=== PATIENT | male | born 1940 | race Caucasian/White ===

== ENCOUNTER 2017-05-09 14:45 | Emergency (ER) | payer MEDICARE ==
[2017-05-09 15:07] VITALS: RESP 18
[2017-05-09] MEDS ORDERED: FAMOTIDINE 20 MG TAB PO STA (15:17)
[2017-05-09] MEDS ORDERED: methylPREDNISolone SOD SUCCI 125 MG/2 ML VIAL IM ONE (15:17)
[2017-05-09] MEDS ORDERED: diphenhydrAMINE 50 MG CAP PO STA (15:17)
--- NOTE | 2017-05-09 15:31 | ED ---
Allergic Reaction HPI - General Chief complaint: Allergic Reaction Stated complaint: post CT with contrast-hives Time Seen by Provider: 05/09/17 15:11 Source: patient Mode of arrival: ambulatory Limitations: no limitations - History of Present Illness Initial Comments: Patient is a 76-year-old male states of cardiac past medical history who presents to the emergency department for evaluation of possible ALLERGIC reaction to IV contrast. The patient underwent a CTA earlier in the day, he tolerated the imaging study well and upon walking to his car noticed that he had hives on his chest and one on his right face. Patient does report that approximately 40 years ago he had an ALLERGIC reaction to IV contrast, however he noted that this was a different formulation of IV contrast and that he did not believe he would have a reaction to this contrast today. Patient denies any swelling of his tongue, tightness of his throat or chest. He denies any difficulty breathing, chest pain nausea or vomiting. Patient does note that over the weekend he was started on a new medication for his prostate and that he subsequently developed swelling of the lips, he then Benadryl on Saturday with mild improvement in the swelling. He has been discontinued use of his new medication. Patient states "I think I'm just full of histamine." - Related Data Home Medications Medication Instructions Recorded Confirmed ALPRAZolam [Xanax] 0.5 mg PO TID PRN 02/06/16 05/09/17 Calcium Carbonate/Vitamin D3 1 tab PO 02/06/16 05/09/17 [Calcium 600-Vit D3 400 Tablet] Doxazosin [Cardura] 4 mg PO 02/06/16 05/09/17 Ergocalciferol [Vitamin D2 50,000 unit PO TU 02/06/16 05/09/17 (DRISDOL)] Ezetimibe [Zetia] 10 mg PO 02/06/16 05/09/17 Pom[place]-3 Fatty Acids [Pomaria-3] 2,000 mg PO 02/06/16 05/09/17 Pravastatin Sodium [Pravachol] 20 mg PO HS 02/06/16 05/09/17 Quinapril HCl 40 mg PO 02/06/16 05/09/17 Ranitidine HCl 300 mg PO 02/06/16 05/09/17 Ubidecarenone [Co Q-10] 300 mg PO HS 02/06/16 05/09/17 cloNIDine HCL [Catapres] 0.1 mg PO DAILY PRN 02/06/16 05/09/17 Aspirin 81 mg PO HS 03/22/16 05/09/17 Diltiazem HCl [Diltiazem 24Hr ER] 240 mg PO HS 03/22/16 05/09/17 Previous Rx's Medication Instructions Recorded Apixaban [Eliquis] 5 mg PO BID #60 tab 02/24/16 Metoprolol Tartrate [Lopressor] 25 mg PO BID #60 tab 02/24/16 Allergies Allergy/AdvReac Type Severity Reaction Status Date / Time adhesive Allergy Itching Verified 05/09/17 15:30 levofloxacin [From Levaquin] Allergy Rash/Hives Verified 05/09/17 15:30 perfume Allergy chokes/SOB Verified 05/09/17 15:30 promethazine HCl Allergy Stroke Verified 05/09/17 15:30 [From Phenergan] like symptoms tamsulosin HCl [From Flomax] Allergy Cough Verified 05/09/17 15:30 aftershave Allergy chokes,SOB Uncoded 03/22/16 11:43 Review of Systems ROS Statement: Those systems with pertinent positive or pertinent negative responses have been documented in the HPI. ROS Other: All systems not noted in ROS Statement are negative. Constitutional: Denies: fever, chills Eyes: Denies: vision change ENT: Denies: throat pain Respiratory: Denies: cough, dyspnea, wheezes, stridor Cardiovascular: Denies: chest pain, palpitations Endocrine: Denies: fatigue Gastrointestinal: Denies: abdominal pain, nausea, vomiting Skin: Reports: rash (hives on chest) Neurological: Denies: headache, weakness Hematological/Lymphatic: Denies: easy bleeding, easy bruising Past Medical History Past Medical History: Atrial Fibrillation, Coronary Artery Disease (CAD), Chest Pain / Angina, GERD/Reflux, Hyperlipidemia, Hypertension, Osteoarthritis (OA), Rheumatoid Arthritis (RA), Sleep Apnea/CPAP/BIPAP Additional Past Medical History / Comment(s): irregular heartbeat, hiatal hernia , incisional hernia, hx diverticulitis, small aortic aneurysm on CT(4 cm), urinary frequency, hx subdural hematoma after concussion, pt states CABG chest incision still sore History of Any Multi-Drug Resistant Organisms: None Reported Past Surgical History: Bowel Resection, Cholecystectomy, Coronary Bypass/CABG, Heart Catheterization, Hernia Repair, Joint Replacement, Orthopedic Surgery, Tonsillectomy Additional Past Surgical History / Comment(s): 10/19/15 3 vessel CABG at [facility] in [place], bilateral total knee replacements. varicose veins removed from vimal great toes, mult hernia surgery, vimal knee arthroscopy Past Anesthesia/Blood Transfusion Reactions: Previous Problems w/ Anesthesia, Motion Sickness Additional Past Anesthesia/Blood Transfusion Reaction / Comment(s): Pt has received blood in past without reaction. failed atempt x 4 for spinal anesthesia due to spinal stenosis per pt Past Psychological History: Anxiety Smoking Status: Never smoker Past Alcohol Use History: Occasional Past Drug Use History: None Reported - Past Family History Father Family Medical History: Coronary Artery Disease (CAD) Additional Family Medical History / Comment(s): Father at age 75 yrs from complication associated with [place]-Ferny catheter. Mother Family Medical History: No Reported History Additional Family Medical History / Comment(s): Mother at age 93 yrs. She had cataracts. General Exam Limitations: no limitations General appearance: alert, in no apparent distress Head exam: Present: atraumatic, normocephalic, normal inspection Eye exam: Present: normal appearance, PERRL, EOMI. Absent: scleral icterus, conjunctival injection, periorbital swelling ENT exam: Present: normal exam, mucous membranes moist, other (mild swelling of lip, appear dry and cracked) Neck exam: Present: normal inspection. Absent: tenderness, meningismus, lymphadenopathy Respiratory exam: Present: normal lung sounds bilaterally. Absent: respiratory distress, wheezes, rales, rhonchi, stridor Cardiovascular Exam: Present: regular rate, normal rhythm, normal heart sounds. Absent: systolic murmur, diastolic murmur, rubs, gallop, clicks GI/Abdominal exam: Present: soft, normal bowel sounds. Absent: distended, tenderness, guarding, rebound, rigid Extremities exam: Present: normal inspection Neurological exam: Present: alert, oriented X3, CN II-XII intact Psychiatric exam: Present: normal affect, normal mood Skin exam: Present: warm, dry, intact, rash (small hives on left chest wall) Course Vital Signs 05/09/17 05/09/17 15:02 16:40 Temperature 97.4 F L 97.5 F L Pulse Rate 62 67 Respiratory 18 18 Rate Blood Pressure 143/66 142/68 O2 Sat by Pulse 96 96 Oximetry - Reevaluation(s) Reevaluation #1: Patient was reevaluated, hives on chest have resolved. Patient is sitting comfortably in chair. No tightness in his chest, no chest pain, no nausea. The patient tolerated the IM injection and by mouth medications. 05/09/17 16:28 Medical Decision Making - Medical Decision Making She was seen and evaluated, vital signs were reviewed Patient provided the history Physical exam with small hives on left chest wall No airway or GI involvement, no hemodynamic instability Patient requesting PO or IM medications as his IV was just removed after the CTA and he is on eliquis which causes him to bruise Medications ordered Medications were given, patient tolerated them well Patient was observed for 1 hour after medications, hives improved, patient did not develop any hemodynamic instability, airway or GI involvement All questions pertaining to care were answered to the best of my ability and the patient was discharged home in good condition. Disposition Clinical Impression: Allergic reaction Disposition: HOME SELF-CARE Condition: Good Instructions: Anaphylaxis (ED) Referrals: Bruce Odonnell MD [Primary Care Provider] - 1-2 days Time of Disposition: 16:29
[2017-05-09 16:41] VITALS: BP 142/68; PULSE 67; TEMP 97.5
== END 2017-05-09 16:41 | disposition home or self-care (01) ==
LOC: EC 14:45
DX: T78.40XA Allergy, unspecified, initial encounter (principal); L50.0 Allergic urticaria; I48.91 Unspecified atrial fibrillation; I25.10 Atherosclerotic heart disease of native coronary artery without angina pectoris; K21.9 Gastro-esophageal reflux disease without esophagitis; I10 Essential (primary) hypertension; E78.5 Hyperlipidemia, unspecified; G47.30 Sleep apnea, unspecified; Z99.89 Dependence on other enabling machines and devices; Z95.5 Presence of coronary angioplasty implant and graft; Z95.1 Presence of aortocoronary bypass graft; Z79.82 Long term (current) use of aspirin; Z79.899 Other long term (current) drug therapy; Z88.1 Allergy status to other antibiotic agents; Z88.8 Allergy status to other drugs, medicaments and biological substances; Z91.048 Other nonmedicinal substance allergy status; Z91.09 Other allergy status, other than to drugs and biological substances
CPT/HCPCS: 99283; 96372; J2930

== ENCOUNTER → 2017-05-09 | Outpatient (CLI) | payer MEDICARE ==
[2017-05-09 14:08] LABS: Blood Urea Nitrogen 20 mg/dL (9-20); Non-African American GFR(MDRD) >60 (>60 ml/min/1.73 sqM)
--- NOTE | 2017-05-09 15:33 | CT ---
EXAMINATION TYPE: CT angio chest DATE OF EXAM: 05/09/2017 COMPARISON: CTA chest February 22, 2016 HISTORY: Thoracic aneurysm without mention of rupture. Atherosclerotic heart disease per order. CT DLP: 907 mGycm. Automated Exposure Control for Dose Reduction was Utilized. CONTRAST: CTA scan of the thorax is performed without and with IV Contrast, patient injected with 100 ml mL of Omnipaque 350, aneurysm protocol. Three-D reconstructed Images are created on independent workstation and reviewed. FINDINGS: LUNGS: Some minimal linear scarring or atelectasis in the lingula and left lower lobe near diaphragm is redemonstrated. Slightly elevated left hemidiaphragm is again seen. No suspicious new nodule or m ass is present. There is no pleural effusion or pneumothorax seen. The tracheobronchial tree is de la rosa nt. MEDIASTINUM: Main pulmonary artery is less prominent on current study measuring 3.0 cm in diameter on axial image 27. Adjacent ascending aorta measures 4.0 x 3.9 cm on axial image 27 felt stable tiny f or technical differences versus prior study. There are no greater than 1 cm hilar or mediastinal lymp h nodes. No significant pericardial effusion is seen. There is stable mild cardiomegaly. There is p rominent jena coronary artery calcification but post CABG changes with mediastinal clips and sterna l wires is redemonstrated. OTHER: There is stable small to moderate size hiatal hernia. There is stable moderate to severe multi level spurring in the spine. IMPRESSION: 1. Stable 4.0 cm aneurysm of the ascending aorta.
== END | disposition home or self-care (01) ==
LOC: RADCTMAIN 12:46
PROVIDERS: ATTEND Internal Medicine Interventional Cardiology
DX: I71.2 Thoracic aortic aneurysm, without rupture (principal); I25.10 Atherosclerotic heart disease of native coronary artery without angina pectoris
CPT/HCPCS: 82565; 84520; 71275; 36415; Q9967

== ENCOUNTER 2017-05-20 19:35 | Emergency (ER) | payer MEDICARE ==
[2017-05-20] MEDS ORDERED: methylPREDNISolone SOD SUCCI 125 MG/2 ML VIAL IM ONE (20:07)
[2017-05-20] MEDS ORDERED: FAMOTIDINE 20 MG TAB PO STA (20:07)
--- NOTE | 2017-05-20 20:15 | ED ---
General Adult HPI - General Chief complaint: Skin/Abscess/Foreign Body Stated complaint: Allergic Reaction Time Seen by Provider: 05/20/17 20:06 Source: patient Mode of arrival: ambulatory Limitations: no limitations - History of Present Illness Initial comments: 76-year-old male patient presents to emergency department today for evaluation of hives to his face and scalp. He states that this started around 12:00 this afternoon. He states that he is having scratchy throat, and tongue swelling with this. He denies any new exposures. States that he did use a new hand of shaving cream today however this is the same brand he has been using for years. He denies any new foods, medications, soaps, or clothing. He denies any difficulty breathing or difficulty swallowing. Patient states he did take a Benadryl about 1 hour ago. Patient denies any recent fever, chills, chest pain , abdominal pain, nausea, vomiting, diarrhea, constipation, back pain, numbness , tingling, headache, visual changes, hematuria, dysuria, urinary frequency, urinary urgency, or any other complaints. - Related Data Home Medications Medication Instructions Recorded Confirmed ALPRAZolam [Xanax] 0.5 mg PO TID PRN 02/06/16 05/20/17 Calcium Carbonate/Vitamin D3 1 tab PO HS 02/06/16 05/20/17 [Calcium 600-Vit D3 400 Tablet] Doxazosin [Cardura] 4 mg PO HS 02/06/16 05/20/17 Ergocalciferol [Vitamin D2 50,000 unit PO TU 02/06/16 05/20/17 (DRISDOL)] Ezetimibe [Zetia] 10 mg PO 02/06/16 05/20/17 [place]-3 Fatty Acids [[place]-3] 2,000 mg PO HS 02/06/16 05/20/17 Pravastatin Sodium [Pravachol] 20 mg PO HS 02/06/16 05/20/17 Quinapril HCl 40 mg PO 02/06/16 05/20/17 Ranitidine HCl 300 mg PO HS 02/06/16 05/20/17 Ubidecarenone [Co Q-10] 300 mg PO HS 02/06/16 05/20/17 cloNIDine HCL [Catapres] 0.1 mg PO DAILY PRN 02/06/16 05/20/17 Aspirin 81 mg PO HS 03/22/16 05/20/17 Diltiazem HCl [Diltiazem 24Hr ER] 240 mg PO HS 03/22/16 05/20/17 Previous Rx's Medication Instructions Recorded Apixaban [Eliquis] 5 mg PO BID #60 tab 02/24/16 Metoprolol Tartrate [Lopressor] 25 mg PO BID #60 tab 02/24/16 predniSONE 50 mg PO DAILY #3 tab 05/20/17 Allergies Allergy/AdvReac Type Severity Reaction Status Date / Time adhesive Allergy Itching Verified 05/20/17 19:56 levofloxacin [From Levaquin] Allergy Rash/Hives Verified 05/20/17 19:56 perfume Allergy chokes/SOB Verified 05/20/17 19:56 promethazine HCl Allergy Stroke Verified 05/20/17 19:56 [From Phenergan] like symptoms tamsulosin HCl [From Flomax] Allergy Cough Verified 05/20/17 19:56 aftershave Allergy chokes,SOB Uncoded 05/20/17 19:56 Review of Systems ROS Statement: Those systems with pertinent positive or pertinent negative responses have been documented in the HPI. ROS Other: All systems not noted in ROS Statement are negative. Past Medical History Past Medical History: Atrial Fibrillation, Coronary Artery Disease (CAD), Chest Pain / Angina, GERD/Reflux, Hyperlipidemia, Hypertension, Osteoarthritis (OA), Rheumatoid Arthritis (RA), Sleep Apnea/CPAP/BIPAP Additional Past Medical History / Comment(s): irregular heartbeat, hiatal hernia , incisional hernia, hx diverticulitis, small aortic aneurysm on CT(4 cm), urinary frequency, hx subdural hematoma after concussion, pt states CABG chest incision still sore History of Any Multi-Drug Resistant Organisms: None Reported Past Surgical History: Bowel Resection, Cholecystectomy, Coronary Bypass/CABG, Heart Catheterization, Hernia Repair, Joint Replacement, Orthopedic Surgery, Tonsillectomy Additional Past Surgical History / Comment(s): 10/19/15 3 vessel CABG at [facility] in [place], bilateral total knee replacements. varicose veins removed from vimal great toes, mult hernia surgery, vimal knee arthroscopy Past Anesthesia/Blood Transfusion Reactions: Previous Problems w/ Anesthesia, Motion Sickness Additional Past Anesthesia/Blood Transfusion Reaction / Comment(s): Pt has received blood in past without reaction. failed atempt x 4 for spinal anesthesia due to spinal stenosis per pt Past Psychological History: Anxiety Smoking Status: Never smoker Past Alcohol Use History: Occasional Past Drug Use History: None Reported - Past Family History Father Family Medical History: Coronary Artery Disease (CAD) Additional Family Medical History / Comment(s): Father at age 75 yrs from complication associated with [place]-Ferny catheter. Mother Family Medical History: No Reported History Additional Family Medical History / Comment(s): Mother at age 93 yrs. She had cataracts. General Exam Limitations: no limitations General appearance: alert, in no apparent distress Eye exam: Present: normal appearance, PERRL, EOMI. Absent: scleral icterus, conjunctival injection, periorbital swelling ENT exam: Present: normal exam, normal oropharynx, mucous membranes moist, TM's normal bilaterally, other (Minimal tongue swelling and dryness.) Neck exam: Present: normal inspection. Absent: tenderness, meningismus, lymphadenopathy Respiratory exam: Present: normal lung sounds bilaterally. Absent: respiratory distress, wheezes, rales, rhonchi, stridor Cardiovascular Exam: Present: regular rate, normal rhythm, normal heart sounds. Absent: systolic murmur, diastolic murmur, rubs, gallop, clicks Neurological exam: Present: alert, oriented X3, CN II-XII intact Psychiatric exam: Present: normal affect, normal mood Skin exam: Present: warm, dry, intact, normal color, rash (Sparse red, raised, itchy lesions noted to face and scalp. Lesions appear similar to hives. Surrounding erythema.) Course Vital Signs 05/20/17 05/20/17 19:54 21:03 Temperature 98 F 97.6 F Pulse Rate 75 87 Respiratory 20 18 Rate Blood Pressure 136/63 154/78 O2 Sat by Pulse 98 97 Oximetry Medical Decision Making - Medical Decision Making 76-year-old male patient presented for evaluation of hives and itching to his face and scalp. Patient was given IM Benadryl Solu-medrol as well as Pepcid by mouth. Upon reevaluation patient states that he feels normal, states he is no longer having any itching or tongue symptoms. Did give patient prescription for a three-day course of prednisone. He is instructed to continue taking Benadryl every 6 hours. He is instructed to Spot test his new shaving cream. He is instructed to return here immediately for any new, worsening, or concerning symptoms. He is instructed to follow-up with his primary care physician for recheck in 1-2 days. He verbalizes understanding and agrees with this plan. Disposition Clinical Impression: Urticaria, Allergic reaction Disposition: HOME SELF-CARE Condition: Good Instructions: Urticaria (ED) Additional Instructions: Take steroid as directed. Take Benadryl every 6 hours as needed. Follow up with your primary care physician for recheck in 1-2 days. Return here immediately for any new, worsening, or concerning symptoms. Prescriptions: predniSONE 50 mg PO DAILY #3 tab Referrals: Bruce Odonnell MD [Primary Care Provider] - 1-2 days Time of Disposition: 20:59
[2017-05-20] MEDS ORDERED: diphenhydrAMINE 50 MG/ML 1 ML VIAL IM STA (20:26)
[2017-05-20 21:04] VITALS: BP 154/78; PULSE 87; RESP 18; TEMP 97.6
== END 2017-05-20 21:07 | disposition home or self-care (01) ==
LOC: EC 19:35
DX: T78.40XA Allergy, unspecified, initial encounter (principal); L50.9 Urticaria, unspecified; E78.5 Hyperlipidemia, unspecified; I10 Essential (primary) hypertension; K21.9 Gastro-esophageal reflux disease without esophagitis; M19.90 Unspecified osteoarthritis, unspecified site; M06.9 Rheumatoid arthritis, unspecified; Z79.82 Long term (current) use of aspirin; Z79.899 Other long term (current) drug therapy; Z88.1 Allergy status to other antibiotic agents; Z88.8 Allergy status to other drugs, medicaments and biological substances; Z91.048 Other nonmedicinal substance allergy status; Z86.79 Personal history of other diseases of the circulatory system
CPT/HCPCS: 99283; 96372 ×2; J1200; J2930

== ENCOUNTER 2019-02-26 10:33 | Day surgery (SDC) | payer MEDICARE ==
[2019-02-24 15:12] VITALS: BMI 36.3
[~2019-02-26 10:33] MED LIST: LACTATED RINGERS 1,000 ML IV SCH; LIDOCAINE 1% 20 ML VIAL (10MG/ML) FOR IV START INTRADERMA PRN
[2019-02-26 11:02] VITALS: TEMP 97.9
[2019-02-26] MEDS ORDERED: PROPOFOL 10 MG/ML 20 ML VIAL IV ONE (12:18)
[2019-02-26 12:47] VITALS: PULSE 61; RESP 16
--- NOTE | 2019-02-26 12:52 | P.PCN ---
Date of Procedure: 02/26/19 Procedure(s) Performed: Procedure: Esophagogastroduodenoscopy and biopsy. Preoperative diagnosis: History of esophagitis and Metzger's esophagus. Postoperative diagnosis: 1. Hiatal hernia and Metzger's esophagus but no obvious esophagitis or strictures. 2. Multiple biopsies obtained from the Metzger's se gment to rule out dysplasia. Preparation and sedation: Was provided by anesthesia. Brief clinical history: The patient is a 78-year-old male who was evaluated in the office earlier this month following his return from [place]. He had and upper endoscopy at [facility] in October of this year and was diagnosed to have esophagitis and Metzger's esophagus. He was changed from H2 blockers to Courtney nix and advised to have repeat endoscopy at home. The patient has been doing well and not having heartburn. No dysphagia or other alarm symptoms. Procedure: With the patient on his left lateral decubitus position and after informed consent and adequate sedation, I passed the Olympus-GIF H190 video upper endoscope through the cricopharyngeus down the esophagus. GE junction was irregular and started around 34 cm from the incisors and the tubular esophagus continued for another 4 or 5 cm. There was a moderately sized hiatal hernia that was then entered, then the endoscope was passed into the stomach which was insufflated with air and inspected in detail including the retroflex view in the cardia. Finally, the endoscope was passed through the pylorus into the duodenum. The stomach, pyloric channel, duodenal bulb, post bulbar area and descending duodenum appeared within normal. The esophagus appeared healed with no evidence of esophagitis as mentioned. I obtained multiple biopsies from the Metzger's segment to rule out dysplasia then the endoscope was withdrawn. The patient tolerated the procedure well. Plan: The patient was reassured. He will continue antireflux diet and measures as well as his protonix. I anticipate he will have a repeat upper endoscopy in 1-3 years depending on the biopsy results. I will keep you updated on his progress.
[2019-02-26 13:05] VITALS: BP 127/78
== END 2019-02-26 13:28 | disposition home or self-care (01) ==
LOC: ORWHC2ENDO 10:33
DX: K22.711 Barrett's esophagus with high grade dysplasia (principal); K44.9 Diaphragmatic hernia without obstruction or gangrene; I48.91 Unspecified atrial fibrillation; Z85.038 Personal history of other malignant neoplasm of large intestine; I25.119 Atherosclerotic heart disease of native coronary artery with unspecified angina pectoris; I10 Essential (primary) hypertension; Z90.49 Acquired absence of other specified parts of digestive tract; K21.9 Gastro-esophageal reflux disease without esophagitis; E07.9 Disorder of thyroid, unspecified; M19.90 Unspecified osteoarthritis, unspecified site; Z95.1 Presence of aortocoronary bypass graft; E78.5 Hyperlipidemia, unspecified; I27.20 Pulmonary hypertension, unspecified; G47.33 Obstructive sleep apnea (adult) (pediatric); Z99.89 Dependence on other enabling machines and devices; Z79.82 Long term (current) use of aspirin; Z79.52 Long term (current) use of systemic steroids; Z79.899 Other long term (current) drug therapy; Z88.1 Allergy status to other antibiotic agents; Z88.8 Allergy status to other drugs, medicaments and biological substances; Z91.09 Other allergy status, other than to drugs and biological substances
CPT/HCPCS: 88305; 43239; J2704

== ENCOUNTER → 2020-04-11 | Outpatient (CLI) | payer MEDICARE ==
--- NOTE | 2020-04-11 12:44 | XR ---
EXAMINATION TYPE: XR femur RT DATE OF EXAM: 04/11/2020 CLINICAL HISTORY: Pain TECHNIQUE: Two views of the right femur are obtained. COMPARISON: None FINDINGS: There is mild arthropathy of the hips. Vascular calcifications are seen. Hypertrophic spur ring of the greater trochanter and acetabulum. Postsurgical change involving the right knee. Atherosc lerotic vascular changes. IMPRESSION: 1. Right hip arthropathy with spurring along the greater trochanter which can be associated with troc hanteric bursitis. 2. No acute fracture. 3. Postsurgical change involving the knee.
--- NOTE | 2020-04-11 12:45 | XR ---
EXAMINATION TYPE: XR Hip Complete RT DATE OF EXAM: 04/11/2020 COMPARISON: NONE HISTORY: Pain TECHNIQUE: 2 views submitted FINDINGS: There is no evidence of erosive change or acute fracture. Sprain involving the greater trochanter see n and there are vascular calcifications. Mild concentric narrowing of the joint space. No erosive ralf nges. IMPRESSION: 1. Mild arthropathy. 2. Correlate for trochanteric bursitis. 3. No acute fracture.
== END | disposition home or self-care (01) ==
LOC: RADXRMAIN 12:10
PROVIDERS: ATTEND Internal Medicine
DX: M16.11 Unilateral primary osteoarthritis, right hip (principal); Z98.890 Other specified postprocedural states
CPT/HCPCS: 73502

== ENCOUNTER → 2020-06-08 | Outpatient (CLI) | payer MEDICARE ==
--- NOTE | 2020-06-08 13:48 | US ---
EXAMINATION TYPE: US kidneys/renal and bladder DATE OF EXAM: 06/08/2020 COMPARISON: NONE CLINICAL HISTORY: R10.9 FLANK PAIN. EXAM MEASUREMENTS: Right Kidney: 12.8 x 4.5 x 4.9 cm Left Kidney: 12.0 x 6.3 x 5.1 cm Right Kidney: lower/medial cyst measures 1.0 x 1.0 x 0.8 cm Left Kidney: upper/medial cyst measures 3.1 x 3.2 x 2.9 cm Bladder: not well distended Bilateral Jets seen: no There is no evidence for hydronephrosis at this point in time. No nephrolithiasis is seen. No solid masses are identified. The urinary bladder is anechoic. IMPRESSION: Simple renal cysts noted.
== END | disposition home or self-care (01) ==
LOC: RADUSWWP 13:19
PROVIDERS: ATTEND Urology
DX: N28.1 Cyst of kidney, acquired (principal)
CPT/HCPCS: 76770

== ENCOUNTER 2022-02-25 17:05 | Inpatient (IN) | payer MEDICARE ==
[2022-02-25 18:20] LABS: Appearance,Urine Clear (Clear); Bilirubin,Urine 1+ (Negative); Blood,Urine Negative (Negative); Color,Urine Yellow; Glucose,Urine (UA) Negative (Negative); Ketones,Urine Trace (Negative); Leukocyte Esterase,Urine Negative (Negative); Nitrite,Urine Negative (Negative); PH, Urine 5.5 (5.0-8.0); Protein,Urine Trace (Negative); Urobilinogen,Urine <2.0 mg/dL (<2.0)
--- NOTE | 2022-02-25 18:40 | XR ---
EXAMINATION TYPE: XR KUB DATE OF EXAM: 02/25/2022 COMPARISON: NONE HISTORY: Abdominal pain TECHNIQUE: 3 views FINDINGS: There are multiple dilated gas-filled loops of small bowel throughout the abdomen. There ar e some fluid levels. No evidence of free air. There is relative lack of large bowel gas. There are so me surgical clips in the left lower quadrant. IMPRESSION: Dilated small bowel suggestive of distal mechanical small bowel obstruction. No free air.
[2022-02-25] MEDS ORDERED: SODIUM CHLORIDE 0.9% 500 ML 500 ML IV ONE (19:22)
[2022-02-25] MEDS ORDERED: ONDANSETRON 4 MG/2 ML VIAL IVP STA (19:22)
[2022-02-25] MEDS ORDERED: HYDROmorphone 0.5 MG/0.5 ML SYRINGE IVP STA (19:22)
[2022-02-25 19:59] LABS: Basophils % (A) 0 %; Eosinophils # (A) 0.1 k/uL (0-0.7); Eosinophils % (A) 1 %; HCT 39.6 % (39.0-53.0); HGB 13.4 gm/dL (13.0-17.5); Lymphocytes # (A) 0.7 k/uL (1.0-4.8); Lymphocytes % (A) 6 %; MCH 31.5 pg (25.0-35.0); MCV 92.8 fL (80.0-100.0); Monocytes # (A) 0.5 k/uL (0-1.0); Monocytes % (A) 4 %; Neutrophils # (A) 10.3 k/uL (1.3-7.7); Neutrophils % (A) 88 %; Platelet Count 226 k/uL (150-450); RBC 4.27 m/uL (4.30-5.90); RDW 13.3 % (11.5-15.5); WBC 11.6 k/uL (3.8-10.6)
[2022-02-25] MEDS: SODIUM CHLORIDE 0.9% 1,000 ML IV SCH (19:59)
[2022-02-25 20:11] LABS: Albumin 4.3 g/dL (3.5-5.0); Calcium 10.5 mg/dL (8.4-10.2); Potassium 4.2 mmol/L (3.5-5.1); Total Bilirubin 2.3 mg/dL (0.2-1.3); Total Protein 7.1 g/dL (6.3-8.2)
[2022-02-25 20:13] LABS: Partial Thromboplastin Time 26.6 sec (22.0-30.0); Prothrombin Time 10.8 sec (9.0-12.0)
--- NOTE | 2022-02-25 20:32 | CT ---
EXAMINATION TYPE: CT abdomen pelvis wo con DATE OF EXAM: 02/25/2022 COMPARISON: None HISTORY: abd pain, N/V since 02/23 CT DLP: 1127.4 mGycm Automated exposure control for dose reduction was used. Images obtained from the diaphragm to the floor the pelvis with no contrast. There is some mild subsegmental atelectasis at the lung bases. No pleural effusion. Heart size is nor mal. No pericardial effusion. Liver and spleen are intact. There is a distended fluid-filled stomach. There is hiatal hernia. No pa ncreatic mass. The bile ducts are not dilated. Gallbladder appears absent. There is no adrenal mass. Kidneys have normal size. No hydronephrosis. There is 4 cm cortical cyst an terior left kidney. No retroperitoneal adenopathy. Ureters are not dilated. Urinary bladder is almost empty. No pelvic mass. No free fluid in the pelvis. No inguinal hernia. There is multiple dilated fluid-filled small bowel loops throughout the abdomen. The terminal ileum i s not dilated. No hernia seen. Transition point not identified. Small bowel dilated up to 4 cm. Lumbar vertebra have normal alignment. No compression fracture. There is degenerative disc space narr owing throughout the lumbar spine. There is multilevel spurring of the endplates. The hip joints are intact. Appendix is small and appears normal. IMPRESSION: Dilated proximal and mid small bowel suggestive of significant ileus or partial mechanical small anuradha l obstruction.
[2022-02-25] MEDS ORDERED: ONDANSETRON 4 MG/2 ML VIAL IVP PRN (20:42)
[2022-02-25] MEDS ORDERED: NALOXONE 0.4 MG/ML 1 ML VIAL IV PRN (20:42)
--- NOTE | 2022-02-25 20:46 | ED ---
General Adult HPI - General Chief complaint: Abdominal Pain Stated complaint: Abd pain Time Seen by Provider: 02/25/22 19:05 Source: patient, RN notes reviewed, old records reviewed Mode of arrival: ambulatory Limitations: no limitations - History of Present Illness Initial comments: 81-year-old male presenting for reevaluation of abdominal pain and distention as well as vomiting. Patient has had symptoms for the past 3 days. He was seen at outside emergency department as well as urgent care over this time. He had workup including CT scanning. He initially had diarrhea however this has subsided and he has had increased abdominal pain, distention and no vomiting. No fevers. He had previous abdominal surgery including cholecystectomy and ant erior abdominal wall hernia repair. - Related Data Home Medications Medication Instructions Recorded Confirmed ALPRAZolam [Xanax] 0.5 mg PO TID PRN 02/06/16 02/26/19 Calcium Carbonate/Vitamin D3 1 tab PO HS 02/06/16 02/24/19 [Calcium 600-Vit D3 400 Tablet] Doxazosin [Cardura] 4 mg PO HS 02/06/16 02/24/19 Ezetimibe [Zetia] 10 mg PO HS 02/06/16 02/24/19 [place]-3 Fatty Acids [[place]-3] 1,000 mg PO HS 02/06/16 02/24/19 Pravastatin Sodium [Pravachol] 20 mg PO HS 02/06/16 02/24/19 Quinapril HCl 40 mg PO HS 02/06/16 02/24/19 Ubidecarenone [Co Q-10] 300 mg PO HS 02/06/16 02/24/19 cloNIDine HCL [Catapres] 0.1 mg PO DAILY PRN 02/06/16 02/26/19 Aspirin 81 mg PO HS 03/22/16 02/24/19 dilTIAZem HCL [dilTIAZem HCL 24Hr 240 mg PO HS 03/22/16 02/24/19 ER ([place])] Pantoprazole [Protonix] 40 mg PO [facility] 02/24/19 02/24/19 predniSONE 50 mg PO DAILY PRN 02/24/19 02/26/19 Previous Rx's Medication Instructions Recorded Apixaban [Eliquis] 5 mg PO BID #60 tab 02/24/16 Metoprolol Tartrate [Lopressor] 25 mg PO BID #60 tab 02/24/16 Allergies Allergy/AdvReac Type Severity Reaction Status Date / Time adhesive Allergy Itching Verified 02/25/22 17:55 Iodine and Iodide Containing Allergy hives Verified 02/25/22 17:55 Produc levofloxacin [From Levaquin] Allergy Rash/Hives Verified 02/25/22 17:55 minocycline Allergy Unknown Verified 02/25/22 17:55 perfume Allergy chokes/SOB Verified 02/25/22 17:55 promethazine HCl Allergy Stroke Verified 02/25/22 17:55 [From Phenergan] like symptoms tamsulosin HCl [From Flomax] Allergy Cough Verified 02/25/22 17:55 aftershave Allergy chokes,SOB Uncoded 02/25/22 17:55 Review of Systems ROS Statement: Those systems with pertinent positive or pertinent negative responses have been documented in the HPI. ROS Other: All systems not noted in ROS Statement are negative. Past Medical History Past Medical History: Atrial Fibrillation, Coronary Artery Disease (CAD), Chest Pain / Angina, GERD/Reflux, Hyperlipidemia, Hypertension, Osteoarthritis (OA), Sleep Apnea/CPAP/BIPAP Additional Past Medical History / Comment(s): irregular heartbeat, hiatal hernia, hx diverticulitis, small aortic aneurysm on CT(4 cm), urinary frequency, hx subdural hematoma after concussion,muscle aches, spinal spurs, degenerative disks, spinal stenosis, eczema, "borderline diabetic"-no diet or medication, "small bladder", "sore left ankle" History of Any Multi-Drug Resistant Organisms: None Reported Past Surgical History: Bowel Resection, Cholecystectomy, Coronary Bypass/CABG, Heart Catheterization, Hernia Repair, Joint Replacement, Orthopedic Surgery, Tonsillectomy Additional Past Surgical History / Comment(s): 10/19/15 3 vessel CABG at [facility] in [place], bilateral total knee replacements. varicose veins removed from great toe rt foot, mult hernia surgeries, vimal knee arthroscopy, barretts esophagus Past Anesthesia/Blood Transfusion Reactions: Previous Problems w/ Anesthesia, Motion Sickness Additional Past Anesthesia/Blood Transfusion Reaction / Comment(s): Pt has received blood in past without reaction. failed atempt x 3 for spinal anesthesia due to spinal stenosis per pt Past Psychological History: Anxiety Smoking Status: Never smoker Past Alcohol Use History: None Reported Past Drug Use History: None Reported - Past Family History Mother Family Medical History: No Reported History Additional Family Medical History / Comment(s): . General Exam Limitations: no limitations General appearance: alert, in no apparent distress Head exam: Present: atraumatic, normocephalic Eye exam: Present: normal appearance, PERRL ENT exam: Present: mucous membranes dry Neck exam: Present: normal inspection. Absent: tenderness, meningismus Respiratory exam: Present: normal lung sounds bilaterally. Absent: respiratory distress, wheezes Cardiovascular Exam: Present: regular rate, normal rhythm, systolic murmur GI/Abdominal exam: Present: distended, tenderness, hypoactive bowel sounds Extremities exam: Present: normal inspection, normal capillary refill. Absent: pedal edema Neurological exam: Present: alert, oriented X3, CN II-XII intact. Absent: motor sensory deficit Psychiatric exam: Present: normal affect, normal mood Skin exam: Present: warm, dry, intact. Absent: cyanosis, diaphoretic Course Vital Signs 02/25/22 17:52 Temperature 97.5 F L Pulse Rate 77 Respiratory 16 Rate Blood Pressure 137/76 O2 Sat by Pulse 97 Oximetry Medical Decision Making - Medical Decision Making 81-year-old male with x-ray evidence of small bowel obstruction. CT is performed and does confirm small bowel stricture. He has a mild leukocytosis, stable hemoglobin, normal lactic. NG tube was placed in the emergency department. Case discussed with Dr. Dr. Odonnell who is patient's primary care physician and Dr. Yarbrough with General surgery. The patient will be kept nothing by mouth, IV fluids, nasogastric tube, pain medication and antiemetics in order. - Lab Data Result diagrams: 02/25/22 19:50 02/25/22 19:50 Lab Results 02/25/22 02/25/22 02/25/22 Range/Units 18:06 19:50 19:50 WBC 11.6 H (3.8-10.6) k/uL RBC 4.27 L (4.30-5.90) m/uL Hgb 13.4 (13.0-17.5) gm/dL Hct 39.6 (39.0-53.0) % MCV 92.8 (80.0-100.0) fL MCH 31.5 (25.0-35.0) pg MCHC 34.0 (31.0-37.0) g/dL RDW 13.3 (11.5-15.5) % Plt Count 226 (150-450) k/uL MPV 7.0 Neutrophils % 88 % Lymphocytes % 6 % Monocytes % 4 % Eosinophils % 1 % Basophils % 0 % Neutrophils # 10.3 H (1.3-7.7) k/uL Lymphocytes # 0.7 L (1.0-4.8) k/uL Monocytes # 0.5 (0-1.0) k/uL Eosinophils # 0.1 (0-0.7) k/uL Basophils # 0.0 (0-0.2) k/uL PT 10.8 (9.0-12.0) sec INR 1.0 (<1.2) APTT 26.6 (22.0-30.0) sec Sodium (137-145) mmol/L Potassium (3.5-5.1) mmol/L Chloride (98-107) mmol/L Carbon Dioxide (22-30) mmol/L Anion Gap mmol/L BUN (9-20) mg/dL Creatinine (0.66-1.25) mg/dL Est GFR (CKD-EPI)AfAm (>60 ml/min/1.73 sqM) Est GFR (CKD-EPI)NonAf (>60 ml/min/1.73 sqM) Glucose (74-99) mg/dL Plasma Lactic Acid Arley (0.7-2.0) mmol/L Calcium (8.4-10.2) mg/dL Total Bilirubin (0.2-1.3) mg/dL AST (17-59) U/L ALT (4-49) U/L Alkaline Phosphatase (38-126) U/L Total Protein (6.3-8.2) g/dL Albumin (3.5-5.0) g/dL Amylase (30-110) U/L Lipase (23-300) U/L Urine Color Yellow Urine Appearance Clear (Clear) Urine pH 5.5 (5.0-8.0) Ur Specific [place] 1.030 (1.001-1.035) Urine Protein Trace H (Negative) Urine Glucose (UA) Negative (Negative) Urine Ketones Trace H (Negative) Urine Blood Negative (Negative) Urine Nitrite Negative (Negative) Urine Bilirubin 1+ H (Negative) Urine Urobilinogen <2.0 (<2.0) mg/dL Ur Leukocyte Esterase Negative (Negative) 02/25/22 02/25/22 Range/Units 19:50 19:50 WBC (3.8-10.6) k/uL RBC (4.30-5.90) m/uL Hgb (13.0-17.5) gm/dL Hct (39.0-53.0) % MCV (80.0-100.0) fL MCH (25.0-35.0) pg MCHC (31.0-37.0) g/dL RDW (11.5-15.5) % Plt Count (150-450) k/uL MPV Neutrophils % % Lymphocytes % % Monocytes % % Eosinophils % % Basophils % % Neutrophils # (1.3-7.7) k/uL Lymphocytes # (1.0-4.8) k/uL Monocytes # (0-1.0) k/uL Eosinophils # (0-0.7) k/uL Basophils # (0-0.2) k/uL PT (9.0-12.0) sec INR (<1.2) APTT (22.0-30.0) sec Sodium 135 L (137-145) mmol/L Potassium 4.2 (3.5-5.1) mmol/L Chloride 101 (98-107) mmol/L Carbon Dioxide 21 L (22-30) mmol/L Anion Gap 13 mmol/L BUN 26 H (9-20) mg/dL Creatinine 1.33 H (0.66-1.25) mg/dL Est GFR (CKD-EPI)AfAm 59 (>60 ml/min/1.73 sqM) Est GFR (CKD-EPI)NonAf 51 (>60 ml/min/1.73 sqM) Glucose 129 H (74-99) mg/dL Plasma Lactic Acid [place] 1.2 (0.7-2.0) mmol/L Calcium 10.5 H (8.4-10.2) mg/dL Total Bilirubin 2.3 H (0.2-1.3) mg/dL AST 25 (17-59) U/L ALT 15 (4-49) U/L Alkaline Phosphatase 56 (38-126) U/L Total Protein 7.1 (6.3-8.2) g/dL Albumin 4.3 (3.5-5.0) g/dL Amylase 74 (30-110) U/L Lipase 74 (23-300) U/L Urine Color Urine Appearance (Clear) Urine pH (5.0-8.0) Ur Specific [place] (1.001-1.035) Urine Protein (Negative) Urine Glucose (UA) (Negative) Urine Ketones (Negative) Urine Blood (Negative) Urine Nitrite (Negative) Urine Bilirubin (Negative) Urine Urobilinogen (<2.0) mg/dL Ur Leukocyte Esterase (Negative) Disposition Clinical Impression: Small bowel obstruction Disposition: ADMITTED IP TO THIS HOSP Condition: Stable Is patient prescribed a controlled substance at d/c from ED?: No Referrals: Bruce Odonnell MD [Primary Care Provider] - 1-2 days Time of Disposition: 20:45
--- NOTE | 2022-02-26 00:17 | XR ---
EXAMINATION TYPE: XR abdomen 1V DATE OF EXAM: 02/26/2022 COMPARISON: NONE HISTORY: Check tube placement TECHNIQUE: Single view FINDINGS: There is nasogastric tube faintly visualized and appears to have the tip over the body of t he stomach. There are dilated multiple loops of small bowel. There is some atelectasis at the lung ba ses. IMPRESSION: NG tube in the stomach. There is probably increasing atelectasis at the lung bases compar ed to exam 5 hours ago.
[2022-02-26] MEDS: HYDROmorphone 0.5 MG/0.5 ML SYRINGE IVP PRN ×3 (01:03→23:43)
--- NOTE | 2022-02-26 09:20 | P.GSCN ---
History of Present Illness Consult date: 02/26/22 History of present illness: 81-year-old male presents to the emergency department with complaints of abdominal pain. He states that he presented to the hospital in [place] a few days ago for similar issue, however was told that it appeared to have gastroenteritis. He states that initially there was some improvement, however his case worsened yesterday and he presented again to the emergency department. He states that he has a past surgical Hx Of cholecystectomy, complex abdominal hernia repair and colectomy secondary to diverticulitis. He denies having any previous history of bowel obstruction. Nasogastric tube was placed in the emergency department and the patient states that there has been some improvement in his abdominal distention. He states that prior to my examination this morning that he did have 1 loose bowel movement. Currently, he has some discomfort with the nasogastric tube that is in place and states he still has some abdominal soreness that has somewhat improved. Review of Systems All systems: negative Past Medical History Past Medical History: Atrial Fibrillation, Coronary Artery Disease (CAD), Chest Pain / Angina, GERD/Reflux, Hyperlipidemia, Hypertension, Osteoarthritis (OA), Sleep Apnea/CPAP/BIPAP Additional Past Medical History / Comment(s): irregular heartbeat, hiatal hernia, hx diverticulitis, small aortic aneurysm on CT(4 cm), urinary frequency, hx subdural hematoma after concussion,muscle aches, spinal spurs, degenerative disks, spinal stenosis, eczema, "borderline diabetic"-no diet or medication, "small bladder", "sore left ankle" History of Any Multi-Drug Resistant Organisms: None Reported Past Surgical History: Bowel Resection, Cholecystectomy, Coronary Bypass/CABG, Heart Catheterization, Hernia Repair, Joint Replacement, Orthopedic Surgery, Tonsillectomy Additional Past Surgical History / Comment(s): 10/19/15 3 vessel CABG at [facility] in [place], bilateral total knee replacements. varicose veins removed from great toe rt foot, mult hernia surgeries, vimal knee arthroscopy, barretts esophagus, cataract surgery Past Anesthesia/Blood Transfusion Reactions: Previous Problems w/ Anesthesia, Motion Sickness Additional Past Anesthesia/Blood Transfusion Reaction / Comm: Pt has received blood in past without reaction. failed atempt x 3 for spinal anesthesia due to spinal stenosis per pt Past Psychological History: Anxiety Additional Psychological History / Comment(s): . Smoking Status: Never smoker Past Alcohol Use History: None Reported Past Drug Use History: None Reported - Past Family History Mother Family Medical History: No Reported History Additional Family Medical History / Comment(s): . Medications and Allergies Home Medications Medication Instructions Recorded Confirmed Type ALPRAZolam [Xanax] 0.5 mg PO TID PRN 02/06/16 02/25/22 History Calcium Carbonate/Vitamin D3 1 tab PO W/BRKFST 02/06/16 02/25/22 History [Calcium 600-Vit D3 400 Tablet] Doxazosin [Cardura] 4 mg PO HS 02/06/16 02/25/22 History Ezetimibe [Zetia] 10 mg PO HS 02/06/16 02/25/22 History [place]-3 Fatty Acids [[place]-3] 1,000 mg PO BID 02/06/16 02/25/22 History cloNIDine HCL [Catapres] 0.1 mg PO QID PRN 02/06/16 02/25/22 History Apixaban [Eliquis] 5 mg PO BID #60 tab 02/24/16 02/25/22 Rx Aspirin 81 mg PO HS 03/22/16 02/25/22 History Pantoprazole [Protonix] 40 mg PO AC-BID 02/24/19 02/25/22 History Candesartan [Atacand] 16 mg PO HS 02/25/22 02/25/22 History Cholecalciferol [Vitamin D3 (25 50 mcg PO DAILY 02/25/22 02/25/22 History Mcg = 1000 Iu)] Cinnamon Bark [Cinnamon] 1,000 mg PO BID 02/25/22 02/25/22 History Cyanocobalamin (Vitamin B-12) 1,000 mcg PO DAILY 02/25/22 02/25/22 History [Vitamin B-12] Desonide [DesOwen 0.05%] 1 applic TOPICAL DIRECTED 02/25/22 02/25/22 History Furosemide [Lasix] 20 mg PO DAILY PRN 02/25/22 02/25/22 History Ipratropium [place] [Ipratropium 1 spray NASAL DAILY PRN 02/25/22 02/25/22 History [place] 0.03%] Levocetirizine Dihydrochloride 5 mg PO DAILY PRN 02/25/22 02/25/22 History [Xyzal] Lovastatin [Mevacor] 20 mg PO HS 02/25/22 02/25/22 History Metoprolol Tartrate [Lopressor] 12.5 mg PO BID 02/25/22 02/25/22 History Montelukast [Singulair] 10 mg PO DAILY PRN 02/25/22 02/25/22 History Multivit-Min/FA/Lycopen/Lutein 1 tab PO DAILY 02/25/22 02/25/22 History [Centrum Silver Men Tablet] Potassium Chloride ER [K-Dur 10] 10 meq PO DAILY PRN 02/25/22 02/25/22 History Silodosin [Rapaflo] 8 mg PO W/SUPPER PRN 02/25/22 02/25/22 History Turmeric Root Extract [Turmeric] 1,000 mg PO BID 02/25/22 02/25/22 History Ubidecarenone [Co Q-10] 300 mg PO BID 02/25/22 02/25/22 History Vits A,C,E/Lutein/Minerals 1 tab PO DAILY 02/25/22 02/25/22 History [Ocuvite with Lutein Tablet] dilTIAZem HCL [dilTIAZem HCL 24Hr 180 mg PO HS 02/25/22 02/25/22 History ER] prednisoLONE ACETATE 1% OPHTH 1 drops RIGHT EYE BID 02/25/22 02/25/22 History [Pred Forte 1%] Allergies Allergy/AdvReac Type Severity Reaction Status Date / Time adhesive Allergy Itching, Verified 02/25/22 20:55 sores, rash alfuzosin Allergy SWELLING Verified 02/25/22 20:55 LIPS Iodine and Iodide Containing Allergy hives Verified 02/25/22 20:55 Produc levofloxacin [From Levaquin] Allergy Rash/Hives Verified 02/25/22 20:55 minocycline Allergy Unknown Verified 02/25/22 20:55 perfume Allergy chokes/SOB Verified 02/25/22 20:55 promethazine HCl Allergy Stroke Verified 02/25/22 20:55 [From Phenergan] like symptoms sucralfate [From Carafate] Allergy ITCHING IN Verified 02/25/22 20:55 MOUTH AND OF LIPS tamsulosin HCl [From Flomax] Allergy Cough Verified 02/25/22 20:55 aftershave Allergy chokes,SOB Uncoded 06/26/22 17:55 Surgical - Exam Osteopathic Statement: *. No significant issues noted on an osteopathic structural exam other than those noted in the History and Physical/Consult. Vital Signs Temp Pulse Resp BP Pulse Ox 97.5 F L 77 16 137/76 97 02/25/22 17:52 02/25/22 17:52 02/25/22 17:52 02/25/22 17:52 02/25/22 17:52 - General no distress - Eyes normal ocular movement - ENT normal mucosa, no hearing loss - Neck trachea midline - Respiratory normal respiratory effort - Abdomen Soft, mild distention, mild generalized abdominal tenderness, no rebound, no g uarding - Psychiatric oriented to time, oriented to person, oriented to place Results - Labs 02/25/22 19:50 02/25/22 19:50 Abnormal Lab Results - Last 24 Hours (Table) 02/25/22 02/25/22 02/25/22 Range/Units 18:06 19:50 19:50 WBC 11.6 H (3.8-10.6) k/uL RBC 4.27 L (4.30-5.90) m/uL Neutrophils # 10.3 H (1.3-7.7) k/uL Lymphocytes # 0.7 L (1.0-4.8) k/uL Sodium 135 L (137-145) mmol/L Carbon Dioxide 21 L (22-30) mmol/L BUN 26 H (9-20) mg/dL Creatinine 1.33 H (0.66-1.25) mg/dL Glucose 129 H (74-99) mg/dL Calcium 10.5 H (8.4-10.2) mg/dL Total Bilirubin 2.3 H (0.2-1.3) mg/dL Urine Protein Trace H (Negative) Urine Ketones Trace H (Negative) Urine Bilirubin 1+ H (Negative) Diabetes panel 02/25/22 Range/Units 19:50 Sodium 135 L (137-145) mmol/L Potassium 4.2 (3.5-5.1) mmol/L Chloride 101 (98-107) mmol/L Carbon Dioxide 21 L (22-30) mmol/L BUN 26 H (9-20) mg/dL Creatinine 1.33 H (0.66-1.25) mg/dL Glucose 129 H (74-99) mg/dL Calcium 10.5 H (8.4-10.2) mg/dL AST 25 (17-59) U/L ALT 15 (4-49) U/L Alkaline Phosphatase 56 (38-126) U/L Total Protein 7.1 (6.3-8.2) g/dL Albumin 4.3 (3.5-5.0) g/dL Calcium panel 02/25/22 Range/Units 19:50 Calcium 10.5 H (8.4-10.2) mg/dL Albumin 4.3 (3.5-5.0) g/dL Pituitary panel 02/25/22 Range/Units 19:50 Sodium 135 L (137-145) mmol/L Potassium 4.2 (3.5-5.1) mmol/L Chloride 101 (98-107) mmol/L Carbon Dioxide 21 L (22-30) mmol/L BUN 26 H (9-20) mg/dL Creatinine 1.33 H (0.66-1.25) mg/dL Glucose 129 H (74-99) mg/dL Calcium 10.5 H (8.4-10.2) mg/dL Adrenal panel 02/25/22 Range/Units 19:50 Sodium 135 L (137-145) mmol/L Potassium 4.2 (3.5-5.1) mmol/L Chloride 101 (98-107) mmol/L Carbon Dioxide 21 L (22-30) mmol/L BUN 26 H (9-20) mg/dL Creatinine 1.33 H (0.66-1.25) mg/dL Glucose 129 H (74-99) mg/dL Calcium 10.5 H (8.4-10.2) mg/dL Total Bilirubin 2.3 H (0.2-1.3) mg/dL AST 25 (17-59) U/L ALT 15 (4-49) U/L Alkaline Phosphatase 56 (38-126) U/L Total Protein 7.1 (6.3-8.2) g/dL Albumin 4.3 (3.5-5.0) g/dL Assessment and Plan Plan: 81-year-old male with ileus versus partial small bowel obstruction. CT of the abdomen and pelvis was reviewed with finding of ileus versus small bowel obstruction. Nasogastric tube has been in place and patient did just have a loose bowel movement. We will plan for abdominal x-ray this morning for further evaluation for resolution. Continue nasogastric tube and n.p.o. status for now. We will continue to follow and make recommendations based on the patient's clinical progress.
--- NOTE | 2022-02-26 10:01 | XR ---
EXAMINATION TYPE: XR abdomen complete w decub DATE OF EXAM: 02/26/2022 COMPARISON: NONE HISTORY: Pain TECHNIQUE: Supine, upright, and left side down lateral decubitus views of the abdomen are obtained. FINDINGS: Scoliosis and degenerative changes spine. Postsurgical change involving the pelvis and medi astinum. Multiple dilated small bowel loops with air-fluid levels. Arthropathy of the hips. Calcifica tions in the pelvis. IMPRESSION: Dilated small bowel loops with air-fluid levels or limits for small bowel obstruction
[2022-02-26] MEDS: SODIUM CHLORIDE 0.9% 1,000 ML IV SCH (14:28)
--- NOTE | 2022-02-26 14:34 | P.HPIM ---
History of Present Illness H&P Date: 02/26/22 HISTORY OF PRESENT ILLNESS This is a 81 year old male patient with past medical history of paroxysmal atrial fibrillation, coronary artery disease status post CABG, gastroesophageal reflux disease and hiatal hernia, hypertension, hyperlipidemia, obstructive sleep apnea, subdural hematoma, degenerative disc disease and spinal stenosis, eczema, borderline diabetic. Patient developed abdominal pain that started on Saturday initially presented to a hospital in [place] and diagnosed with gastroenteritis and discharged. Initially had some improvement but as of yesterday became significantly worse along with episodes of vomiting. He complains of abdominal pain and abdominal distention and also that he's had decreased urine output. Patient presented to the [facility] emergency center. He was found to be afebrile, heart rate 77, blood pressure 137/76, pulse ox 97% on room air. WBC 11.6, hemoglobin 11.4, platelet count 226. INR 1.0. Sodium 135, potassium 4.2, chloride 101, CO2 21, BUN 26 creatinine 1.33. Glucose 129. Lactic acid 1.2. Calcium 10.5. Total bilirubin 2.3, AST 25, ALT 15, alkaline phosphatase 56. Amylase and lipase normal. Urinalysis clear with trace amount of ketones and trace protein, 1+ bilirubin. KUB revealed dilated small bowel suggestive of distal mechanical small bowel obstruction. No free air. CAT scan of the abdomen and pelvis without contrast revealed dilated proximal and mid small bowel suggestive of significant ileus or partial mechanical small bowel obstruction. Repeat abdominal x-ray for NG tube placement revealed increased atelectasis. NG tube in the stomach. Repeat abdominal x-ray reveals dilated small bowel loops with air fluid levels or limits for small bowel obstruction. Patient was started on Dilaudid for pain, Zofran for nausea, IV fluids and admitted to the [facility] floor. NG tube was placed but accidentally dislodged during episode of sneezing. Patient remains nothing by mouth. Midline ordered for IV access. REVIEW OF SYSTEMS Constitutional: No fever, no chills, no night sweats. No weight change. No weakness, fatigue or lethargy. No daytime sleepiness. EENT: No headache. No blurred vision or double vision, no loss of vision. No loss of Hearing, no ringing in the ears, no dizziness. No nasal drainage or congestion. No epistaxis. No sore throat. Lungs: No shortness of breath, cough, no sputum production. No wheezing. Cardiovascular: No chest pain, no lower extremity edema. No palpitations. No paroxysmal nocturnal dyspnea. No orthopnea. No lightheadedness or dizziness. No syncopal episodes. Abdominal: Reports abdominal pain. Reports nausea, vomiting. No diarrhea. Reports constipation. No bloody or tarry stools. No loss of appetite. Genitourinary: No dysuria, increased frequency, urgency. No urinary retention. Musculoskeletal: No myalgias. No muscle weakness, no gait dysfunction, no frequent falls. No back pain. No neck pain. Integumentary: No wounds, no lesions. No rash or pruritus. No unusual bruising. No change in hair or nails. Neurologic: No aphasia. No facial droop. No change in mentation. No head injury. No headache. No paralysis. No paresthesia. Psychiatric: No depression. No anxiety. No mood swings. Endocrine: No abnormal blood sugars. No weight change. No excessive sweating or thirst. No cold intolerance. MEDICAL HISTORY Paroxysmal atrial fibrillation Coronary artery disease Gastroesophageal reflux disease Hiatal hernia and Metzger's esophagus Hypertension Hyperlipidemia Obstructive sleep apnea Subdural hematoma Degenerative disc disease and spinal stenosis Eczema ALLERGIC rhinitis Borderline diabetic Benign prostatic hypertrophy SURGICAL HISTORY CABG 3 vessels performed in [place] in 2015 Cardiac catheterization 03/2016 finding severe triple-vessel coronary artery disease EGD and biopsy 01/2019 Cholecystectomy Bilateral total knee replacements Bilateral knee arthroscopic surgeries Varicose veins review moved Multiple hernia surgeries Cataract removal and intraocular lens implants Colon resection from diverticulitis in 1994 Colonoscopy 2018 SOCIAL HISTORY Patient is a lifelong nonsmoker, no alcohol use or illicit drug use. He lives at home with his . FAMILY HISTORY Father at age 75 from coronary artery disease. Mother at age 95 from diabetes mellitus type 2, coronary artery disease, rheumatoid arthritis, [place]. Patient has one son with obesity and hemorrhoids. Patient has one daughter with gluten intolerance and arthritis. PHYSICAL EXAMINATION Gen: This is a 81-year-old male. He is resting in bed slightly unc omfortable appearing HEENT: Head is atraumatic, normocephalic. Pupils equal, round. Sclerae is anict neli. NECK: Supple. No JVD. No lymphadenopathy. No thyromegaly. LUNGS: Clear to auscultation. No wheezes or rhonchi. No intercostal retractions. HEART: First heart sound is depressed, secondary sound is normal, 2/6 systolic ejection murmur at the left sternal border, no S3, no S4. ABDOMEN: Abdominal distention. Bowel sounds are present. No masses. Generalized abdominal tenderness. EXTREMITIES: No pedal edema. No calf tenderness. NEUROLOGICAL: Patient is awake, alert and oriented x3. Cranial nerves 2 through 12 are grossly intact. ASSESSMENT AND PLAN 1. Partial small bowel obstruction. NG tube inadvertently removed and no plan for replacement at this point. Continue Dilaudid for pain and Zofran for nausea. Consult with Gen. surgery appreciated. Patient remains nothing by mouth and abdominal x-ray ordered for tomorrow morning. 2. Dehydration. Continue IV fluids 0.9 normal saline at 75 mL per hour. 3. Paroxysmal atrial fibrillation. Hold eliquis, heart rate currently controlled. Will resume oral Cardizem 180 mg at bedtime, Lopressor 12.5 mg t wice daily, once cleared by general surgery to start oral medications. 4. Coronary artery disease status post three-vessel CABG. Hold aspirin 81 mg daily, lovastatin 20 mg at bedtime. 5. Gastroesophageal reflux disease. Patient will be started on Protonix 40 mg IV daily. 6. Hypertension. Candesartan 16 mg at bedtime, clonidine 0.1 mg 4 times daily as needed, Lasix 20 mg daily as needed. 7. Hyperlipidemia. Continue lovastatin, Zetia 10 mg at bedtime. 8. Obstructive sleep apnea. 9. History of subdural hematoma, stable. 10. Degenerative disc disease and spinal stenosis. 11. Generalized anxiety disorder. Continue Xanax or 0.5 mg 3 times daily as needed. 12. Benign prostatic hypertrophy. Monitor for urinary retention.. Patient will be admitted to the hospital for a minimum of 2 night stay. DISCHARGE PLAN Return home. Impression and plan of care have been directed as dictated by the signing physician. Nikkie Lester nurse practitioner acting as scribe for signing physician. Past Medical History Past Medical History: Atrial Fibrillation, Coronary Artery Disease (CAD), Chest Pain / Angina, GERD/Reflux, Hyperlipidemia, Hypertension, Osteoarthritis (OA), Sleep Apnea/CPAP/BIPAP Additional Past Medical History / Comment(s): irregular heartbeat, hiatal hernia, hx diverticulitis, small aortic aneurysm on CT(4 cm), urinary frequency, hx subdural hematoma after concussion,muscle aches, spinal spurs, degenerative disks, spinal stenosis, eczema, "borderline diabetic"-no diet or medication, "small bladder", "sore left ankle" History of Any Multi-Drug Resistant Organisms: None Reported Past Surgical History: Bowel Resection, Cholecystectomy, Coronary Bypass/CABG, Heart Catheterization, Hernia Repair, Joint Replacement, Orthopedic Surgery, Tonsillectomy Additional Past Surgical History / Comment(s): 10/19/15 3 vessel CABG at [facility] in [place], bilateral total knee replacements. varicose veins removed from great toe rt foot, mult hernia surgeries, vimal knee arthroscopy, barretts esophagus, cataract surgery Past Anesthesia/Blood Transfusion Reactions: Previous Problems w/ Anesthesia, Motion Sickness Additional Past Anesthesia/Blood Transfusion Reaction / Comment(s): Pt has received blood in past without reaction. failed atempt x 3 for spinal anesthesia due to spinal stenosis per pt Past Psychological History: Anxiety Additional Psychological History / Comment(s): . Smoking Status: Never smoker Past Alcohol Use History: None Reported Past Drug Use History: None Reported - Past Family History Mother Family Medical History: No Reported History Additional Family Medical History / Comment(s): . Medications and Allergies Home Medications Medication Instructions Recorded Confirmed Type ALPRAZolam [Xanax] 0.5 mg PO TID PRN 02/06/16 02/27/22 History Calcium Carbonate/Vitamin D3 1 tab PO W/BRKFST 02/06/16 02/25/22 History [Calcium 600-Vit D3 400 Tablet] Doxazosin [Cardura] 4 mg PO HS 02/06/16 02/27/22 History Ezetimibe [Zetia] 10 mg PO HS 02/06/16 02/27/22 History Fleetwood-3 Fatty Acids [Fleetwood-3] 1,000 mg PO BID 02/06/16 02/25/22 History cloNIDine HCL [Catapres] 0.1 mg PO QID PRN 02/06/16 02/27/22 History Apixaban [Eliquis] 5 mg PO BID #60 tab 02/24/16 02/27/22 Rx Aspirin 81 mg PO HS 03/22/16 02/27/22 History Pantoprazole [Protonix] 40 mg PO AC-BID 02/24/19 02/27/22 History Candesartan [Atacand] 16 mg PO HS 02/25/22 02/27/22 History Cholecalciferol [Vitamin D3 (25 50 mcg PO DAILY 02/25/22 02/25/22 History Mcg = 1000 Iu)] Cinnamon Bark [Cinnamon] 1,000 mg PO BID 02/25/22 02/25/22 History Cyanocobalamin (Vitamin B-12) 1,000 mcg PO DAILY 02/25/22 02/25/22 History [Vitamin B-12] Desonide [DesOwen 0.05%] 1 applic TOPICAL DIRECTED 02/25/22 02/27/22 History Furosemide [Lasix] 20 mg PO DAILY PRN 02/25/22 02/27/22 History Ipratropium Lewis [Ipratropium 1 spray NASAL DAILY PRN 02/25/22 02/25/22 History Lewis 0.03%] Levocetirizine Dihydrochloride 5 mg PO DAILY PRN 02/25/22 02/27/22 History [Xyzal] Lovastatin [Mevacor] 20 mg PO HS 02/25/22 02/27/22 History Metoprolol Tartrate [Lopressor] 12.5 mg PO BID 02/25/22 02/27/22 History Montelukast [Singulair] 10 mg PO DAILY PRN 02/25/22 02/25/22 History Multivit-Min/FA/Lycopen/Lutein 1 tab PO DAILY 02/25/22 02/25/22 History [Centrum Silver Men Tablet] Potassium Chloride ER [K-Dur 10] 10 meq PO DAILY PRN 02/25/22 02/27/22 History Silodosin [Rapaflo] 8 mg PO W/SUPPER PRN 02/25/22 02/27/22 History Turmeric Root Extract [Turmeric] 1,000 mg PO BID 02/25/22 02/25/22 History Ubidecarenone [Co Q-10] 300 mg PO BID 02/25/22 02/25/22 History Vits A,C,E/Lutein/Minerals 1 tab PO DAILY 02/25/22 02/25/22 History [Ocuvite with Lutein Tablet] prednisoLONE ACETATE 1% OPHTH 1 drops RIGHT EYE BID 02/25/22 02/25/22 History [Pred Forte 1%] Diltiazem Cd [Cardizem CD] 240 mg PO DAILY 02/27/22 02/27/22 History Allergies Allergy/AdvReac Type Severity Reaction Status Date / Time adhesive Allergy Itching, Verified 02/25/22 20:55 sores, rash alfuzosin Allergy SWELLING Verified 02/25/22 20:55 LIPS Iodine and Iodide Containing Allergy hives Verified 02/25/22 20:55 Produc levofloxacin [From Levaquin] Allergy Rash/Hives Verified 02/25/22 20:55 minocycline Allergy Unknown Verified 02/25/22 20:55 perfume Allergy chokes/SOB Verified 02/25/22 20:55 promethazine HCl Allergy Stroke Verified 02/25/22 20:55 [From Phenergan] like symptoms sucralfate [From Carafate] Allergy ITCHING IN Verified 02/25/22 20:55 MOUTH AND OF LIPS tamsulosin HCl [From Flomax] Allergy Cough Verified 02/25/22 20:55 aftershave Allergy chokes,SOB Uncoded 02/25/22 17:55 Physical Exam Vitals: Vital Signs Temp Pulse Pulse Resp BP BP Pulse Ox 02/26/22 08:00 98.0 F 86 16 111/65 93 L 02/26/22 01:41 98.8 F 98 20 118/67 93 L 02/25/22 22:43 98.2 F 97 17 144/74 97 02/25/22 17:52 97.5 F L 77 16 137/76 97 Intake and Output 02/25/22 02/26/22 02/26/22 22:59 06:59 14:59 Other: Voiding Method Toilet # Voids 1 # Bowel Movements 0 5 Weight 97.522 kg Results CBC & Chem 7: 02/25/22 19:50 02/25/22 19:50 Labs: Abnormal Lab Results - Last 24 Hours (Table) 02/25/22 02/25/22 02/25/22 Range/Units 18:06 19:50 19:50 WBC 11.6 H (3.8-10.6) k/uL RBC 4.27 L (4.30-5.90) m/uL Neutrophils # 10.3 H (1.3-7.7) k/uL Lymphocytes # 0.7 L (1.0-4.8) k/uL Sodium 135 L (137-145) mmol/L Carbon Dioxide 21 L (22-30) mmol/L BUN 26 H (9-20) mg/dL Creatinine 1.33 H (0.66-1.25) mg/dL Glucose 129 H (74-99) mg/dL Calcium 10.5 H (8.4-10.2) mg/dL Total Bilirubin 2.3 H (0.2-1.3) mg/dL Urine Protein Trace H (Negative) Urine Ketones Trace H (Negative) Urine Bilirubin 1+ H (Negative) Thrombosis Risk Factor Assmnt - Choose All That Apply Each Risk Factor Represents 3 Points: Age 75 years or older Thrombosis Risk Factor Assessment Total Risk Factor Score: 3 Thrombosis Risk Factor Assessment Level: Moderate Risk
[2022-02-27] MEDS: HYDROmorphone 0.5 MG/0.5 ML SYRINGE IVP PRN ×2 (07:25→22:42)
[2022-02-27] MEDS ORDERED: PANTOPRAZOLE 40 MG/10 ML VIAL IVP SCH (09:00)
[2022-02-27 11:54] LABS: HCT 36.7 % (39.0-53.0); HGB 11.8 gm/dL (13.0-17.5); MCH 30.8 pg (25.0-35.0); MCHC 32.2 g/dL (31.0-37.0); MCV 95.6 fL (80.0-100.0); Mean Platelet Volume 7.1; Platelet Count 194 k/uL (150-450); RBC 3.84 m/uL (4.30-5.90); RDW 13.3 % (11.5-15.5); WBC 5.4 k/uL (3.8-10.6)
[2022-02-27 12:10] LABS: ALT 18 U/L (4-49); AST 24 U/L (17-59); African American GFR (CKD) 71 (>60 ml/min/1.73 sqM); Albumin 3.6 g/dL (3.5-5.0); Albumin/Globulin Ratio 1.4; Alkaline Phosphatase 43 U/L (38-126); Anion Gap 8 mmol/L; Blood Urea Nitrogen 22 mg/dL (9-20); Calcium 8.2 mg/dL (8.4-10.2); Carbon Dioxide 22 mmol/L (22-30); Chloride 108 mmol/L (98-107); Globulin 2.6 g/dL; Glucose 76 mg/dL (74-99); Non-African American GFR(CKD) 62 (>60 ml/min/1.73 sqM); Potassium 4.1 mmol/L (3.5-5.1); Sodium 138 mmol/L (137-145); Total Bilirubin 1.4 mg/dL (0.2-1.3); Total Protein 6.2 g/dL (6.3-8.2)
[2022-02-27] MEDS ORDERED: ALPRAZolam 0.5 MG TAB PO PRN (13:59)
--- NOTE | 2022-02-27 14:20 | P.PN ---
Subjective Progress Note Date: 02/27/22 Patient seen and examined at bedside. Yesterday, nasogastric tube fell out after rounds. Patient did have approximately 6 or 7 liquid bowel movements and recommendation was made to not replace the nasogastric tube. He states that he has been having flatus and this morning he had a very small formed stool. He denies any nausea or vomiting. States abdominal pain is greatly improved. States that his distention is also improving. Objective - Vital Signs Vital signs: Vital Signs Temp 98.0 F 02/27/22 07:42 Pulse 77 02/27/22 07:42 Resp 18 02/27/22 07:42 BP 112/72 02/27/22 07:42 Pulse Ox 96 02/27/22 07:42 FiO2 Intake & Output 02/26/22 02/27/22 02/27/22 18:59 06:59 18:59 Intake Total 675 Output Total 100 Balance 675 -100 Intake: IV 675 Sodium Chloride 0.9% 1, 675 000 ml @ 75 mls/hr IV . [id number] [facility] Rx#:[id number] Output: Urine 100 Other: Voiding Method Toilet Toilet # Voids 1 2 # Bowel Movements 1 - Constitutional General appearance: Present: cooperative - Gastrointestinal Gastrointestinal Comment(s): Soft, nontender, mild distention, no rebound, no guarding - Psychiatric Psychiatric: Present: A&O x's 3 - Labs CBC & Chem 7: 02/27/22 11:26 02/27/22 11:26 Labs: Abnormal Lab Results - Last 24 Hours (Table) 02/27/22 02/27/22 Range/Units 11:26 11:26 RBC 3.84 L (4.30-5.90) m/uL Hgb 11.8 L (13.0-17.5) gm/dL Hct 36.7 L (39.0-53.0) % Chloride 108 H (98-107) mmol/L BUN 22 H (9-20) mg/dL Calcium 8.2 L (8.4-10.2) mg/dL Total Bilirubin 1.4 H (0.2-1.3) mg/dL Total Protein 6.2 L (6.3-8.2) g/dL Assessment and Plan Plan: 81-year-old male with partial small bowel obstruction that appears to be resolving. He has had multiple bowel movements over the past 24 hours. He states his abdominal pain and distention or improved. At this point, I would recommend beginning clear liquid diet and evaluating toleration of this. He still is noted to have some air-fluid levels on his x-ray from yesterday and this can be indicative of a resolving ileus. We will continue to follow closely as he is showing significant clinical signs of improvement.
--- NOTE | 2022-02-27 14:30 | XR ---
EXAMINATION TYPE: XR abdomen 2V DATE OF EXAM: 02/27/2022 COMPARISON: 02/26/2022 HISTORY: Pain TECHNIQUE: One view abdominal series FINDINGS: Scoliosis with multilevel degenerative disc disease. Postsurgical changes involving the mediastinum. Bibasilar subsegmental consolidation. Persistent multiple dilated small bowel loops with air-fluid le vels similar in appearance to the prior exam. Surgical clips in the pelvis. IMPRESSION: 1. Findings suggest small bowel obstruction similar in appearance to prior exam.
[2022-02-27] MEDS ORDERED: MONTELUKAST 10 MG TAB PO PRN (15:13)
--- NOTE | 2022-02-27 15:16 | P.PN ---
Subjective Progress Note Date: 02/27/22 HISTORY OF PRESENT ILLNESS This is a 81 year old male patient with past medical history of paroxysmal atrial fibrillation, coronary artery disease status post CABG, gastroesophageal reflux disease and hiatal hernia, hypertension, hyperlipidemia, obstructive sleep apnea, subdural hematoma, degenerative disc disease and spinal stenosis, eczema, borderline diabetic. Patient developed abdominal pain that started on Saturday initially presented to a hospital in [place] and diagnosed with gastroenteritis and discharged. Initially had some improvement but as of yesterday became significantly worse along with episodes of vomiting. He complains of abdominal pain and abdominal distention and also that he's had decreased urine output. Patient presented to the [facility] emergency center. He was found to be afebrile, heart rate 77, blood pressure 137/76, pulse ox 97% on room air. WBC 11.6, hemoglobin 11.4, platelet count 226. INR 1.0. Sodium 135, potassium 4.2, chloride 101, CO2 21, BUN 26 creatinine 1.33. Glucose 129. Lactic acid 1.2. Calcium 10.5. Total bilirubin 2.3, AST 25, ALT 15, alkaline phosphatase 56. Amylase and lipase normal. Urinalysis clear with trace amount of ketones and trace protein, 1+ bilirubin. KUB revealed dilated small bowel suggestive of distal mechanical small bowel obstruction. No free air. CAT scan of the abdomen and pelvis without contrast revealed dilated proximal and mid small bowel suggestive of significant ileus or partial mechanical small bowel obstruction. Repeat abdominal x-ray for NG tube placement revealed increased atelectasis. NG tube in the stomach. Repeat abdominal x-ray reveals dilated small bowel loops with air fluid levels or limits for small bowel obstruction. Patient was started on Dilaudid for pain, Zofran for nausea, IV fluids and [facility] floor. NG tube was placed but accidentally dislodged during episode of sneezing. Patient remains nothing by mouth. Midline ordered for IV access. 02/27: Patient remains afebrile, heart rate 77, blood pressure 112/72, pulse ox 96% on room air. Midline has been placed for IV access. Patient remains nothing by mouth. Repeat blood work reveals Patient states that he had loose stools yesterday but had solids dark stool t leigh concerned that he is bleeding. Anticoagulation remains on hold for now. He states he has a little bit of cramps but not severe like yesterday and he has less abdominal distention. Repeat abdominal x-ray reveals findings suggestive of bowel obstruction similar appearance to prior exam. Dr. Yarbrough has increased diet to clear liquids. Home medications have been reviewed and appropriately resumed. REVIEW OF SYSTEMS Constitutional: No fever, no chills, no night sweats. No weight change. No weakness, fatigue or lethargy. No daytime sleepiness. EENT: No headache. No blurred vision or double vision, no loss of vision. No loss of Hearing, no ringing in the ears, no dizziness. No nasal drainage or congestion. No epistaxis. No sore throat. Lungs: No shortness of breath, cough, no sputum production. No wheezing. Cardiovascular: No chest pain, no lower extremity edema. No palpitations. No paroxysmal nocturnal dyspnea. No orthopnea. No lightheadedness or dizziness. No syncopal episodes. Abdominal: Reports abdominal pain. Reports nausea, vomiting. No diarrhea. Reports constipation. No bloody or tarry stools. No loss of appetite. Genitourinary: No dysuria, increased frequency, urgency. No urinary retention. Musculoskeletal: No myalgias. No muscle weakness, no gait dysfunction, no frequent falls. No back pain. No neck pain. Integumentary: No wounds, no lesions. No rash or pruritus. No unusual bruising. No change in hair or nails. Neurologic: No aphasia. No facial droop. No change in mentation. No head injury. No headache. No paralysis. No paresthesia. Psychiatric: No depression. No anxiety. No mood swings. Endocrine: No abnormal blood sugars. No weight change. No excessive sweating or thirst. No cold intolerance. PHYSICAL EXAMINATION Gen: This is a 81-year-old male. He is resting in recliner and appears to be comfortable. HEENT: Head is atraumatic, normocephalic. Pupils equal, round. Sclerae is anicteric. NECK: Supple. No JVD. No lymphadenopathy. No thyromegaly. LUNGS: Clear to auscultation. No wheezes or rhonchi. No intercostal retractions. HEART: First heart sound is depressed, secondary sound is normal, 2/6 systolic ejection murmur at the left sternal border, no S3, no S4. Heart rate is regular. ABDOMEN: Abdominal distention. Bowel sounds are present. No masses. Generalized abdominal tenderness. EXTREMITIES: No pedal edema. No calf tenderness. NEUROLOGICAL: Patient is awake, alert and oriented x3. Cranial nerves 2 through 12 are grossly intact. ASSESSMENT AND PLAN 1. Partial small bowel obstruction. NG tube inadvertently removed and no plan for replacement at this point. Continue Dilaudid for pain and Zofran for nausea. Consult with Gen. surgery appreciated. Diet advanced to clear liquids. 2. Dehydration. Continue IV fluids 0.9 normal saline at 75 mL per hour. 3. Paroxysmal atrial fibrillation. Hold eliquis, heart rate currently controlled. Will resume oral Cardizem 240 mg at bedtime, Lopressor 12.5 mg twic e daily. 4. Coronary artery disease status post three-vessel CABG. resume aspirin 81 mg daily, hold lovastatin 20 mg at bedtime. 5. Gastroesophageal reflux disease. Patient will be continued on Protonix 40 mg IV daily. 6. Hypertension. Cozaar 100 mg at bedtime, hold clonidine 0.1 mg 4 times daily as needed, and hold Lasix 20 mg daily as needed. 7. Hyperlipidemia. Continue to hold lovastatin, Zetia 10 mg at bedtime. 8. Obstructive sleep apnea. 9. History of subdural hematoma, stable. 10. Degenerative disc disease and spinal stenosis. 11. Generalized anxiety disorder. Continue Xanax or 0.5 mg 3 times daily as needed. 12. Benign prostatic hypertrophy. Monitor for urinary retention. DISCHARGE PLAN Return home. Impression and plan of care have been directed as dictated by the signing physician. Nikkie Lester nurse practitioner acting as scribe for signing physician. Objective - Vital Signs Vital signs: Vital Signs Temp 98.0 F 02/27/22 07:42 Pulse 77 02/27/22 07:42 Resp 18 02/27/22 07:42 BP 112/72 02/27/22 07:42 Pulse Ox 96 02/27/22 07:42 FiO2 Intake & Output 02/26/22 02/27/22 02/27/22 18:59 06:59 18:59 Intake Total 675 Balance 675 Intake: IV 675 Sodium Chloride 0.9% 1, 675 000 ml @ 75 mls/hr IV . [id number] LIN[facility] Rx#:[id number] Other: Voiding Method Toilet Toilet # Voids 1 2 # Bowel Movements 1 - Labs CBC & Chem 7: 02/27/22 11:26 02/27/22 11:26
[2022-02-27] MEDS ORDERED: LORazepam 2 MG/ML INJ IV PRN (15:25)
[2022-02-27] MEDS: DILTIAZEM CD 240 MG CAP.ER.24H PO SCH (18:54)
[2022-02-27] MEDS: SODIUM CHLORIDE 0.9% 1,000 ML IV SCH ×2 (19:00→21:59)
[2022-02-27] MEDS: DOXAZOSIN 4 MG TAB PO SCH (20:46)
[2022-02-27] MEDS: LOSARTAN 50 MG TAB PO SCH (20:46)
[2022-02-27] MEDS: METOPROLOL TARTRATE 12.5 MG TAB PO SCH (20:47)
[2022-02-27] MEDS: prednisoLONE ACETATE 1% OPHTH DROPS 5 ML BTL RIGHT EYE SCH (20:47)
[2022-02-27] MEDS: ASPIRIN 81 MG PO SCH (20:47)
[2022-02-28] MEDS: SODIUM CHLORIDE 0.9% 1,000 ML IV SCH ×2 (03:25→15:50)
[2022-02-28] MEDS: prednisoLONE ACETATE 1% OPHTH DROPS 5 ML BTL RIGHT EYE SCH ×2 (08:06→20:30)
[2022-02-28] MEDS: PANTOPRAZOLE 40 MG TABLET PO SCH (08:06)
[2022-02-28] MEDS: METOPROLOL TARTRATE 12.5 MG TAB PO SCH ×2 (08:06→20:29)
[2022-02-28] MEDS: DILTIAZEM CD 240 MG CAP.ER.24H PO SCH (08:06)
[2022-02-28 09:07] LABS: HGB 10.5 g/dL (13.0-17.0); MCHC 32.8 g/dL (32.0-37.0); MCV 91.4 fL (80.0-97.0); Mean Platelet Volume 9.9 fL (9.5-12.2); NRBC Per 100 WBC 0 /100 WBCS (0.0-0.0); Platelet Count 186 X 10*3/uL (140-440); RDW 13.6 % (11.5-14.5); WBC 4.74 X 10*3/uL (4.50-10.00)
[2022-02-28 09:19] LABS: African American GFR (CKD) 93.8 (60.0-200.0); Albumin 3.4 g/dL (3.8-4.9); Albumin/Globulin Ratio 1.7 (1.60-3.17); Anion Gap 11.4 mmol/L (10.00-18.00); BUN/Creat Ratio 19.89 Ratio (12.00-20.00); Blood Urea Nitrogen 17.9 mg/dL (9.0-27.0); Carbon Dioxide 19.6 mmol/L (20.0-27.5); Non-African American GFR(CKD) 80.9 (60.0-200.0); Potassium 3.8 mmol/L (3.5-5.5); Total Protein 5.4 g/dL (6.2-8.2)
--- NOTE | 2022-02-28 10:51 | CDI ---
Documentation Clarification Form Date: 02/28/2022 10:37:50 AM From: Keeley SoteloBocanegraBERNADETTE rich, CCDS Admit Date: 02/25/2022 08:42:00 PM Patient Name: Dileep Calderon Visit Number: [id number] Discharge Date: ATTENTION: The Clinical Documentation Specialists (CDI) and [facility] Coding Staff appreciate your assistance in clarifying documentation. Please respond to the clarification below the line at the bottom and electronically sign. The CDI & [facility] Coding staff will review the response and follow-up if needed. Please note: Queries are made part of the Legal Health Record. If you have any questions, please contact the author of this message via ITS. Dr. Bruce Odonnell: The patient was admitted with Partial SBO and Dehydration with the following abnormal lab values: Na 135, BUN 26, Creatinine 1.33. Additional clarification regarding the abnormal labs is requested. History/Risk Factors per the 02/26 H/P: Paroxysmal Atrial Fibrillation, CAD status post CABG 2015, Diverticulitis status post Bowel Resection, GERD, Hiatal Hernia status post repair & Metzger's Esophagus, Hypertension, Hyperlipidemia, Obstructive Sleep Apnea, Subdural hematoma, DDD & Spinal Stenosis, Eczema, Allergic Rhinitis, Borderline Diabetic and BPH. Clinical indicators: Presented to the ED on 02/25 with Abdominal Pain, Distention & Vomiting, initially had Diarrhea that subsided. Admit with Small Bowel Obstruction 02/25 LAB: WBC 11.6, RBC 4.27, Neutrophils 10.3, Lymphocytes 0.7; Na 135, CO2 21, BUN 26, Creatinine 1.33, Glucose 129, Calcium 10.5, Total Bilirubin 2.3 02/27 LAB: RBC 3.84, Hgb 11.8, Hct 36.7; Chloride 108, BUN 22, Creatinine 1.13, Calcium 8.2, Total Bilirubin 1.4, Total Protein 6.2 02/28 LAB: RBC 3.50, Hgb 10.5, Hct 32.0; CO2 19.6, BUN 17.9, Creatinine 0.9, Calcium 8.0, Alk Phos 39, total Protein 5.4, Albumin 3.4 Treatment 02/25: NGT inserted, IV Dilaudid 0.5 mg x1, IV Dilaudid 0.5 mg q3H/prn, IV Zofran 4 mg x1, IV Zofran 4 mg q8H/prn, IV Na Chl 500 mls @ 999 mls/hr q31M Is there an additional diagnosis and/or clinical significance related to the above lab result/information? [ x] Abnormal Labs are significant, please specify: ___mild vi on admission [ ] Abnormal Labs are not significant, please explain: [ ] Other, please specify [ ] Unable to determine (Template Last Revised: October 2020) MTDD
--- NOTE | 2022-02-28 14:40 | P.PN ---
Subjective Progress Note Date: 02/28/22 The patient is seen on rounds. He's feeling much better today. Tolerating a liquid diet without nausea or vomiting. He is hungry. Objective - Vital Signs Vital signs: Vital Signs Temp 97.9 F 02/28/22 14:00 Pulse 66 02/28/22 14:00 Resp 18 02/28/22 14:00 BP 112/65 02/28/22 14:00 Pulse Ox 95 02/28/22 14:00 FiO2 Intake & Output 02/27/22 02/28/22 02/28/22 18:59 06:59 18:59 Intake Total 480 Output Total 125 Balance -125 480 Intake: Oral 480 Output: Urine 125 Other: Voiding Method Toilet # Voids 3 5 # Bowel Movements 1 3 - Constitutional General appearance: Present: cooperative, no acute distress - Gastrointestinal General gastrointestinal: Present: normal bowel sounds, soft. Absent: tenderness - Labs CBC & Chem 7: 02/28/22 05:05 02/28/22 05:05 Labs: Abnormal Lab Results - Last 24 Hours (Table) 02/28/22 02/28/22 Range/Units 05:05 05:05 RBC 3.50 L (4.40-5.60) X 10*6/uL Hgb 10.5 L (13.0-17.0) g/dL Hct 32.0 L (39.6-50.0) % Carbon Dioxide 19.6 L (20.0-27.5) mmol/L Calcium 8.0 L (8.7-10.3) mg/dL Alkaline Phosphatase 39 L (41-126) U/L Total Protein 5.4 L (6.2-8.2) g/dL Albumin 3.4 L (3.8-4.9) g/dL Assessment and Plan (1) Partial small bowel obstruction Current Visit: Yes Status: Acute Code(s): K56.600 - PARTIAL INTESTINAL OBSTRUCTION, UNSPECIFIED TO CAUSE SNOMED Code(s): 824947180 Plan: Patient's clinically improving. Partial bowel obstruction is resolving. The diet will be increased. If he is able to tolerate that, he could be discharged tomorrow
--- NOTE | 2022-02-28 15:17 | P.PN ---
Subjective Progress Note Date: 02/28/22 HISTORY OF PRESENT ILLNESS This is a 81 year old male patient with past medical history of paroxysmal atrial fibrillation, coronary artery disease status post CABG, gastroesophageal reflux disease and hiatal hernia, hypertension, hyperlipidemia, obstructive sleep apnea, subdural hematoma, degenerative disc disease and spinal stenosis, eczema, borderline diabetic. Patient developed abdominal pain that started on Saturday initially presented to a hospital in [place] and diagnosed with gastroenteritis and discharged. Initially had some improvement but as of yesterday became significantly worse along with episodes of vomiting. He complains of abdominal pain and abdominal distention and also that he's had decreased urine output. Patient presented to the [facility] emergency center. He was found to be afebrile, heart rate 77, blood pressure 137/76, pulse ox 97% on room air. WBC 11.6, hemoglobin 11.4, platelet count 226. INR 1.0. Sodium 135, potassium 4.2, chloride 101, CO2 21, BUN 26 creatinine 1.33. Glucose 129. Lactic acid 1.2. Calcium 10.5. Total bilirubin 2.3, AST 25, ALT 15, alkaline phosphatase 56. Amylase and lipase normal. Urinalysis clear with trace amount of ketones and trace protein, 1+ bilirubin. KUB revealed dilated small bowel suggestive of distal mechanical small bowel obstruction. No free air. CAT scan of the abdomen and pelvis without contrast revealed dilated proximal and mid small bowel suggestive of significant ileus or partial mechanical small bowel obstruction. Repeat abdominal x-ray for NG tube placement revealed increased atelectasis. NG tube in the stomach. Repeat abdominal x-ray reveals dilated small bowel loops with air fluid levels or limits for small bowel obstruction. Patient was started on Dilaudid for pain, Zofran for nausea, IV fluids [facility] NG tube was placed but accidentally dislodged during episode of sneezing. Patient remains nothing by mouth. Midline ordered for IV access. 02/27: Patient remains afebrile, heart rate 77, blood pressure 112/72, pulse ox 96% on room air. Midline has been placed for IV access. Patient remains nothing by mouth. Repeat blood work reveals Patient states that he had loose stools yesterday but had solids dark stool t leigh concerned that he is bleeding. Anticoagulation remains on hold for now. He states he has a little bit of cramps but not severe like yesterday and he has less abdominal distention. Repeat abdominal x-ray reveals findings suggestive of bowel obstruction similar appearance to prior exam. Dr. Yarbrough has increased diet to clear liquids. Home medications have been reviewed and appropriately resumed. 02/28: Patient has been seen by Dr. Kenny and patient is tolerating clear liquid diet, and diet advanced by surgery. If patient tolerates this, plan for discharge home tomorrow. Patient denies any abdominal pain. He states he had some loose stools multiple times last evening and one bowel movement this morning. Patient has been afebrile, heart rate 66, blood pressure 112/65, pulse ox 95% on room air. Patient's is at bedside. IV fluids will be changed to saline lock. Patient is complaining of hemorrhoid pain and hydrocortisone suppository added. REVIEW OF SYSTEMS Constitutional: No fever, no chills, no night sweats. No weight change. No weakness, fatigue or lethargy. No daytime sleepiness. EENT: No headache. No blurred vision or double vision, no loss of vision. No loss of Hearing, no ringing in the ears, no dizziness. No nasal drainage or congestion. No epistaxis. No sore throat. Lungs: No shortness of breath, cough, no sputum production. No wheezing. Cardiovascular: No chest pain, no lower extremity edema. No palpitations. No paroxysmal nocturnal dyspnea. No orthopnea. No lightheadedness or dizziness. No syncopal episodes. Abdominal: Reports minimal abdominal pain. Denies nausea, vomiting. Reports diarrhea. Denies constipation. No bloody or tarry stools. Reports loss of appetite. Genitourinary: No dysuria, increased frequency, urgency. No urinary retention. Musculoskeletal: No myalgias. No muscle weakness, no gait dysfunction, no frequent falls. No back pain. No neck pain. Integumentary: No wounds, no lesions. No rash or pruritus. No unusual bruising. No change in hair or nails. Neurologic: No aphasia. No facial droop. No change in mentation. No head injury. No headache. No paralysis. No paresthesia. Psychiatric: No depression. No anxiety. No mood swings. Endocrine: No abnormal blood sugars. No weight change. No excessive sweating or thirst. No cold intolerance. PHYSICAL EXAMINATION Gen: This is a 81-year-old male. He is resting in recliner and appears to be comfortable. HEENT: Head is atraumatic, normocephalic. Pupils equal, round. Sclerae is anicteric. NECK: Supple. No JVD. No lymphadenopathy. No thyromegaly. LUNGS: Clear to auscultation. No wheezes or rhonchi. No intercostal retractions. HEART: First heart sound is depressed, secondary sound is normal, 2/6 systolic ejection murmur at the left sternal border, no S3, no S4. Heart rate is regular. ABDOMEN: Abdominal soft. Bowel sounds are present. No masses. Minimal right upper quadrant and left lower quadrant tenderness. EXTREMITIES: No pedal edema. No calf tenderness. NEUROLOGICAL: Patient is awake, alert and oriented x3. Cranial nerves 2 through 12 are grossly intact. ASSESSMENT AND PLAN 1. Partial small bowel obstruction. NG tube inadvertently removed and no plan for replacement at this point. Continue Dilaudid for pain and Zofran for nausea. Consult with Gen. surgery appreciated. Diet advanced to a low fiber. 2. Dehydration. Continue IV fluids 0.9 normal saline at 75 mL per hour. 3. Paroxysmal atrial fibrillation. Hold eliquis, heart rate currently controlled. Will resume oral Cardizem 240 mg at bedtime, Lopressor 12.5 mg twice daily. 4. Coronary artery disease status post three-vessel CABG. resume aspirin 81 mg daily, hold lovastatin 20 mg at bedtime. 5. Gastroesophageal reflux disease. Patient will be continued on Protonix 40 mg IV daily. 6. Hypertension. Cozaar 100 mg at bedtime, hold clonidine 0.1 mg 4 times daily as needed, and hold Lasix 20 mg daily as needed. 7. Hyperlipidemia. Continue to hold lovastatin, Zetia 10 mg at bedtime. 8. Obstructive sleep apnea. 9. History of subdural hematoma, stable. 10. Degenerative disc disease and spinal stenosis. 11. Generalized anxiety disorder. Continue Xanax or 0.5 mg 3 times daily as needed. 12. Benign prostatic hypertrophy. Monitor for urinary retention. DISCHARGE PLAN Return home on . Impression and plan of care have been directed as dictated by the signing p dorothy. Nikkie Lester nurse practitioner acting as scribe for signing physician. Objective - Vital Signs Vital signs: Vital Signs Temp 97.9 F 02/28/22 14:00 Pulse 66 02/28/22 14:00 Resp 18 02/28/22 14:00 BP 112/65 02/28/22 14:00 Pulse Ox 95 02/28/22 14:00 FiO2 Intake & Output 02/27/22 02/28/22 02/28/22 18:59 06:59 18:59 Intake Total 480 Output Total 125 Balance -125 480 Intake: Oral 480 Output: Urine 125 Other: Voiding Method Toilet # Voids 3 5 # Bowel Movements 1 3 - Labs CBC & Chem 7: 02/28/22 05:05 02/28/22 05:05 Labs: Abnormal Lab Results - Last 24 Hours (Table) 02/28/22 02/28/22 Range/Units 05:05 05:05 RBC 3.50 L (4.40-5.60) X 10*6/uL Hgb 10.5 L (13.0-17.0) g/dL Hct 32.0 L (39.6-50.0) % Carbon Dioxide 19.6 L (20.0-27.5) mmol/L Calcium 8.0 L (8.7-10.3) mg/dL Alkaline Phosphatase 39 L (41-126) U/L Total Protein 5.4 L (6.2-8.2) g/dL Albumin 3.4 L (3.8-4.9) g/dL
[2022-02-28] MEDS: ASPIRIN 81 MG PO SCH (20:29)
[2022-02-28] MEDS: LOSARTAN 50 MG TAB PO SCH (20:29)
[2022-02-28] MEDS: DOXAZOSIN 4 MG TAB PO SCH (20:29)
[2022-02-28] MEDS ORDERED: HYDROCORTISONE SUPPOSITORY 25 MG SUPP RECTAL SCH (21:00)
[2022-03-01 01:25] VITALS: RESP 14; TEMP 97.9
[2022-03-01] MEDS: prednisoLONE ACETATE 1% OPHTH DROPS 5 ML BTL RIGHT EYE SCH (06:38)
[2022-03-01] MEDS: METOPROLOL TARTRATE 12.5 MG TAB PO SCH (06:39)
[2022-03-01] MEDS: PANTOPRAZOLE 40 MG TABLET PO SCH (06:39)
[2022-03-01] MEDS: DILTIAZEM CD 240 MG CAP.ER.24H PO SCH (06:39)
[2022-03-01 06:40] VITALS: BP 147/73; PULSE 81
--- NOTE | 2022-03-01 12:52 | P.DS ---
Providers Date of admission: 02/25/22 20:42 Expected date of discharge: 03/01/22 Attending physician: Bruce Odonnell Consults: 02/25/22 20:42 Consult Physician Routine Consulting Provider: Rashad Yarbrough Consult Reason/Comments: SBO Do you want consulting provider notified?: Already Contacted Primary care physician: Bruce Odonnell Hospital Course: HISTORY OF PRESENT ILLNESS This is a 81 year old male patient with past medical history of paroxysmal atrial fibrillation, coronary artery disease status post CABG, gastroesophageal reflux disease and hiatal hernia, hypertension, hyperlipidemia, obstructive sleep apnea, subdural hematoma, degenerative disc disease and spinal stenosis, eczema, borderline diabetic. Patient developed abdominal pain that started on Saturday initially presented to a hospital in [place] and diagnosed with gastroenteritis and discharged. Initially had some improvement but as of yesterday became significantly worse along with episodes of vomiting. He complains of abdominal pain and abdominal distention and also that he's had decreased urine output. Patient presented to the [facility] emergency center. He was found to be afebrile, heart rate 77, blood pressure 137/76, pulse ox 97% on room air. WBC 11.6, hemoglobin 11.4, platelet count 226. INR 1.0. Sodium 135, potassium 4.2, chloride 101, CO2 21, BUN 26 creatinine 1.33. Glucose 129. Lactic acid 1.2. Calcium 10.5. Total bilirubin 2.3, AST 25, ALT 15, alkaline phosphatase 56. Amylase and lipase normal. Urinalysis clear with trace amount of ketones and trace protein, 1+ bilirubin. KUB revealed dilated small bowel suggestive of distal mechanical small bowel obstruction. No free air. CAT scan of the abdomen and pelvis without contrast revealed dilated proximal and mid small bowel suggestive of significant ileus or partial mechanical small bowel obstruction. Repeat abdominal x-ray for NG tube placement revealed increased atelectasis. NG tube in the stomach. Repeat abdominal x-ray reveals dilated small bowel loops with air fluid levels or limits for small bowel obstruction. Patient was started on Dilaudid for pain, Zofran for nausea, IV fluids [facility] NG tube was placed but accidentally dislodged during episode of sneezing. Patient remains nothing by mouth. Midline ordered for IV access. 02/27: Patient remains afebrile, heart rate 77, blood pressure 112/72, pulse ox 96% on room air. Midline has been placed for IV access. Patient remains nothing by mouth. Repeat blood work reveals Patient states that he had loose stools yesterday but had solids dark stool today concerned that he is bleeding. Anticoagulation remains on hold for now. He states he has a little bit of cramps but not severe like yesterday and he has less abdominal distention. Repeat abdominal x-ray reveals findings suggestive of bowel obstruction similar appearance to prior exam. Dr. Yarbrough has increased diet to clear liquids. Home medications have been reviewed and appropriately resumed. 02/28: Patient has been seen by Dr. Kenny and patient is tolerating clear liquid diet, and diet advanced by surgery. If patient tolerates this, plan for discharge home tomorrow. Patient denies any abdominal pain. He states he had some loose stools multiple times last evening and one bowel movement this morning. Patient has been afebrile, heart rate 66, blood pressure 112/65, pulse ox 95% on room air. Patient's is at bedside. IV fluids will be changed to saline lock. Patient is complaining of hemorrhoid pain and hydrocortisone suppository added. 03/01: Patient denies having any nausea or vomiting. He is tolerating a low fiber diet. He states he has had 3 loose stools today and passing gas. Abdomen appears to be slightly more bloated today but patient cannot confirm this. Patient has been afebrile, heart rate 51, blood pressure 119/62, pulse ox 94% on room air. Stool for occult blood was negative. Patient will be discharged home today once cleared by general surgery. DISCHARGE DIAGNOSES 1. Partial small bowel obstruction. 2. Dehydration. 3. Paroxysmal atrial fibrillation. 4. Coronary artery disease status post three-vessel CABG. 5. Gastroesophageal reflux disease. 6. Hypertension. 7. Hyperlipidemia. 8. Obstructive sleep apnea. 9. History of subdural hematoma, stable. 10. Degenerative disc disease and spinal stenosis. 11. Generalized anxiety disorder. 12. Benign prostatic hypertrophy. Monitor for urinary retention. DISCHARGE PLAN Home Greater than 35 minutes was utilized and coordinating patient's discharge. Impression and plan of care have been directed as dictated by the signing physician. Nikkie Lester nurse practitioner acting as scribe for signing physician. Patient Condition at Discharge: Stable Plan - Discharge Summary Discharge Rx Participant: Yes New Discharge Prescriptions: New Hydrocortisone Suppository [Anusol-Hc] 25 mg RECTAL HS #7 suppositor Continue Ezetimibe [Zetia] 10 mg PO HS Doxazosin [Cardura] 4 mg PO HS ALPRAZolam [Xanax] 0.5 mg PO TID PRN PRN Reason: Anxiety Ryegate-3 Fatty Acids [Ryegate-3] 1,000 mg PO BID Calcium Carbonate/Vitamin D3 [Calcium 600-Vit D3 400 Tablet] 1 tab PO W/BRKFST cloNIDine HCL [Catapres] 0.1 mg PO QID PRN PRN Reason: Systolic bp >150 Apixaban [Eliquis] 5 mg PO BID #60 tab Aspirin 81 mg PO HS Pantoprazole [Protonix] 40 mg PO AC-BID Cholecalciferol [Vitamin D3 (25 Mcg = 1000 Iu)] 50 mcg PO DAILY Cyanocobalamin (Vitamin B-12) [Vitamin B-12] 1,000 mcg PO DAILY Multivit-Min/FA/Lycopen/Lutein [Centrum Silver Men Tablet] 1 tab PO DAILY Ubidecarenone [Co Q-10] 300 mg PO BID Silodosin [Rapaflo] 8 mg PO W/SUPPER PRN PRN Reason: URINARY RETENTION Levocetirizine Dihydrochloride [Xyzal] 5 mg PO DAILY PRN PRN Reason: Allergy Symptoms Potassium Chloride ER [K-Dur 10] 10 meq PO DAILY PRN PRN Reason: with lasix Diltiazem Cd [Cardizem CD] 240 mg PO DAILY Cinnamon Bark [Cinnamon] 1,000 mg PO BID prednisoLONE ACETATE 1% OPHTH [Pred Forte 1%] 1 drops RIGHT EYE BID Turmeric Root Extract [Turmeric] 1,000 mg PO BID Vits A,C,E/Lutein/Minerals [Ocuvite with Lutein Tablet] 1 tab PO DAILY Metoprolol Tartrate [Lopressor] 12.5 mg PO BID Lovastatin [Mevacor] 20 mg PO HS Candesartan [Atacand] 16 mg PO HS Montelukast [Singulair] 10 mg PO DAILY PRN PRN Reason: Allergy Symptoms Ipratropium [place] [Ipratropium [place] 0.03%] 1 spray NASAL DAILY PRN PRN Reason: Allergy Symptoms Furosemide [Lasix] 20 mg PO DAILY PRN PRN Reason: Edema Desonide [DesOwen 0.05%] 1 applic TOPICAL DIRECTED Discharge Medication List ALPRAZolam [Xanax] 0.5 mg PO TID PRN 02/06/16 [History] Calcium Carbonate/Vitamin D3 [Calcium 600-Vit D3 400 Tablet] 1 tab PO W/BRKFST 02/06/16 [History] Doxazosin [Cardura] 4 mg PO HS 02/06/16 [History] Ezetimibe [Zetia] 10 mg PO HS 02/06/16 [History] Ryegate-3 Fatty Acids [Ryegate-3] 1,000 mg PO BID 02/06/16 [History] cloNIDine HCL [Catapres] 0.1 mg PO QID PRN 02/06/16 [History] Apixaban [Eliquis] 5 mg PO BID #60 tab 02/24/16 [Rx] Aspirin 81 mg PO HS 03/22/16 [History] Pantoprazole [Protonix] 40 mg PO AC-BID 02/24/19 [History] Candesartan [Atacand] 16 mg PO HS 02/25/22 [History] Cholecalciferol [Vitamin D3 (25 Mcg = 1000 Iu)] 50 mcg PO DAILY 02/25/22 [History] Cinnamon Bark [Cinnamon] 1,000 mg PO BID 02/25/22 [History] Cyanocobalamin (Vitamin B-12) [Vitamin B-12] 1,000 mcg PO DAILY 02/25/22 [History] Desonide [DesOwen 0.05%] 1 applic TOPICAL DIRECTED 02/25/22 [History] Furosemide [Lasix] 20 mg PO DAILY PRN 02/25/22 [History] Ipratropium [place] [Ipratropium [place] 0.03%] 1 spray NASAL DAILY PRN 02/25/22 [History] Levocetirizine Dihydrochloride [Xyzal] 5 mg PO DAILY PRN 02/25/22 [History] Lovastatin [Mevacor] 20 mg PO HS 02/25/22 [History] Metoprolol Tartrate [Lopressor] 12.5 mg PO BID 02/25/22 [History] Montelukast [Singulair] 10 mg PO DAILY PRN 02/25/22 [History] Multivit-Min/FA/Lycopen/Lutein [Centrum Silver Men Tablet] 1 tab PO DAILY 02/25/22 [History] Potassium Chloride ER [K-Dur 10] 10 meq PO DAILY PRN 02/25/22 [History] Silodosin [Rapaflo] 8 mg PO W/SUPPER PRN 02/25/22 [History] Turmeric Root Extract [Turmeric] 1,000 mg PO BID 02/25/22 [History] Ubidecarenone [Co Q-10] 300 mg PO BID 02/25/22 [History] Vits A,C,E/Lutein/Minerals [Ocuvite with Lutein Tablet] 1 tab PO DAILY 02/25/22 [History] prednisoLONE ACETATE 1% OPHTH [Pred Forte 1%] 1 drops RIGHT EYE BID 02/25/22 [History] Diltiazem Cd [Cardizem CD] 240 mg PO DAILY 02/27/22 [History] Hydrocortisone Suppository [Anusol-Hc] 25 mg RECTAL HS #7 suppositor 03/01/22 [Rx] Follow up Appointment(s)/Referral(s): Bruce Odonnell MD [Primary Care Provider] - 03/07/22 9:15 am Patient Instructions/Handouts: Bowel Obstruction (DC) Activity/Diet/Wound Care/Special Instructions: Gervais soft diet Discharge Disposition: HOME SELF-CARE
--- NOTE | 2022-03-01 14:04 | P.PN ---
Subjective Progress Note Date: 03/01/22 Patient seen and examined at bedside. Has been advanced to soft diet and is having multiple bowel movements. Denies abdominal pain. Objective - Vital Signs Vital signs: Vital Signs Temp 97.9 F 03/01/22 01:24 Pulse 81 03/01/22 06:39 Resp 14 03/01/22 01:24 BP 147/73 03/01/22 06:39 Pulse Ox 94 L 03/01/22 01:24 FiO2 Intake & Output 02/28/22 03/01/22 03/01/22 18:59 06:59 18:59 Intake Total 480 592 Balance 480 592 Intake: Oral 480 592 Other: Voiding Method Toilet # Voids 4 3 # Bowel Movements 1 1 - Constitutional General appearance: Present: cooperative, no acute distress - Gastrointestinal Gastrointestinal Comment(s): Soft, nontender, nondistended, no rebound, no guarding - Psychiatric Psychiatric: Present: A&O x's 3 - Labs CBC & Chem 7: 02/28/22 05:05 02/28/22 05:05 Assessment and Plan Plan: 81-year-old male with partial small bowel obstruction that appears to be resolving. He is having plenty of bowel movements. He is tolerating diet. No nausea or vomiting. He is surgically stable for discharge.
== END 2022-03-01 15:12 | disposition home or self-care (01) | DRG 389 ==
LOC: EC 17:05 → 4SSUR 20:42
PROVIDERS: ADMIT Internal Medicine; ATTEND Internal Medicine
PROC: 0D9670Z Drainage of Stomach with Drainage Device, Via Natural or Artificial Opening (ICD-10-PCS; principal; 2022-02-25)
PROC: 05HF33Z Insertion of Infusion Device into Left Cephalic Vein, Percutaneous Approach (ICD-10-PCS; 2022-02-26 12:35)
DX: K56.690 Other partial intestinal obstruction (principal); J98.11 Atelectasis; N17.9 Acute kidney failure, unspecified; I48.0 Paroxysmal atrial fibrillation; E78.5 Hyperlipidemia, unspecified; E86.0 Dehydration; F41.1 Generalized anxiety disorder; G47.33 Obstructive sleep apnea (adult) (pediatric); I10 Essential (primary) hypertension; I25.10 Atherosclerotic heart disease of native coronary artery without angina pectoris; K21.9 Gastro-esophageal reflux disease without esophagitis; K22.70 Barrett's esophagus without dysplasia; K64.9 Unspecified hemorrhoids; M48.00 Spinal stenosis, site unspecified; N40.0 Benign prostatic hyperplasia without lower urinary tract symptoms; R73.03 Prediabetes; Z96.1 Presence of intraocular lens; K44.9 Diaphragmatic hernia without obstruction or gangrene; I71.9 Aortic aneurysm of unspecified site, without rupture; L30.9 Dermatitis, unspecified; Z96.653 Presence of artificial knee joint, bilateral; S06.5X9D Traumatic subdural hemorrhage with loss of consciousness of unspecified duration, subsequent encounter; Z98.890 Other specified postprocedural states; Z91.048 Other nonmedicinal substance allergy status; Z87.19 Personal history of other diseases of the digestive system; Z88.1 Allergy status to other antibiotic agents; Z88.8 Allergy status to other drugs, medicaments and biological substances; Z79.01 Long term (current) use of anticoagulants; Z79.82 Long term (current) use of aspirin; Z79.899 Other long term (current) drug therapy; Z90.49 Acquired absence of other specified parts of digestive tract; Z95.1 Presence of aortocoronary bypass graft; Z83.3 Family history of diabetes mellitus
CPT/HCPCS: 36410; 36415; 74018; 74019; 74021; 74176; 76937; 80053; 81003; 82150; 82272; 83605; 83690; 85025; 85027; 85610; 85730; 96361; 96374; 96375; 99285